=== PATIENT | female | born 1965 | race Caucasian/White ===

== ENCOUNTER 2017-01-03 02:00 | Emergency (ER) | payer MEDICARE, OTHER ==
[2017-01-03] MEDS ORDERED: diphenhydrAMINE HCl 50 MG/ML 1 ML VIAL ONE (03:01)
[2017-01-03] MEDS ORDERED: Aspirin 325 MG TAB ONE (03:01)
[2017-01-03] MEDS ORDERED: Lorazepam 2 MG/ML VIAL ONE (03:01)
[2017-01-03 03:15] LABS: INR-International Normal Ratio 1.1; PTT 32.3 SEC (22.9-36.1)
[2017-01-03 03:34] LABS: #Basophils 0.1 thou/uL (0.0-0.2); #Lymphocytes 1.1 thou/uL (1.20-3.40); #Monocytes 0.8 thou/uL (0.11-0.59); #Neutrophils 10.5 thou/uL (1.40-6.50); %Basophils 0.5 % (0.0-1.0); %Eosinophils 0.2 % (0.0-10.0); %Lymphocytes 8.8 % (21.0-51.0); %Monocytes 6.1 % (0.0-10.0); %Neutrophils 84.4 % (42.0-75.0); Hemoglobin 13.6 g/dL (12.0-16.0); Mean Corpuscular HGB CONC 34.7 g/dL (32.0-36.0); Mean Corpuscular Hemoglobin 33.7 pg (27.0-31.0); Mean Corpuscular Volume 97.3 fl (81.0-99.0); Mean Platelet Volume 6.8 fL (7.4-10.4); Platelet Count 322 thou/uL (130-400); Red Blood Cell (RBC) Count 4.05 mill/uL (4.20-5.40); White Blood Cell (WBC) Count 12.4 thou/uL (4.8-10.8)
[2017-01-03 03:49] LABS: ALT (SGPT) 18 U/L (8-55); AST (SGOT) 24 U/L (5-34); Albumin 3.8 g/dL (3.5-5.0); Alkaline Phosphatase 81 U/L (40-150); Anion Gap 15 mmol/L (10-20); BUN (Urea Nitrogen) 13 mg/dL (9.8-20.1); Bilirubin, Total 0.5 mg/dL (0.2-1.2); CK (CPK) 73 U/L (29-168); Calc. Creatinine Clearance 0 mL/min (70-130); Calcium 8.9 mg/dL (7.8-10.44); Carbon Dioxide 29 mmol/L (22-29); Chloride 98 mmol/L (98-107); Estimated GFR-MDRD 67; Globulin 3.9 g/dL (2.4-3.5); Glucose 203 mg/dL (70-105); Protein, Total 7.7 g/dL (6.0-8.3); Sodium 138 mmol/L (136-145)
[2017-01-03 03:55] LABS: CKMB 0.2 ng/mL (0-6.6); Troponin I Less than 0.010 ng/mL (< 0.028)
--- NOTE | 2017-01-03 08:14 | RAD ---
PORTABLE UPRIGHT FRONTAL CHEST RADIOGRAPH: Date: 01/03/17 COMPARISON: 02/03/16. HISTORY: Chest pain. FINDINGS: No pneumothorax, pleural fluid, focal consolidation, or alveolar edema. Heart and mediastinal contou r within normal limits. IMPRESSION: No acute findings. POS: [facility]
== END 2017-01-03 05:22 | disposition home or self-care (01) ==
LOC: MADERS 02:00
DX: F43.0 Acute stress reaction (principal); I10 Essential (primary) hypertension; E03.9 Hypothyroidism, unspecified; G35 Multiple sclerosis; E11.65 Type 2 diabetes mellitus with hyperglycemia; N39.0 Urinary tract infection, site not specified; E66.9 Obesity, unspecified; Z79.899 Other long term (current) drug therapy
CPT/HCPCS: 36415; 71010; 80053; 82553; 83880; 84484; 85025; 85610; 85730; 93005; 94760; 96374; 96375; J1200; J2060

== ENCOUNTER 2017-01-04 13:46 | Emergency (ER) | payer MEDICARE, OTHER ==
[~2017-01-04 13:46] MED LIST: Sodium Chloride 0.9% 1,000 ML BAG ONE
[2017-01-04 14:57] LABS: #Basophils 0.1 thou/uL (0.0-0.2); #Eosinphils 0.1 thou/uL (0.0-0.7); #Lymphocytes 1.6 thou/uL (1.20-3.40); #Monocytes 0.7 thou/uL (0.11-0.59); #Neutrophils 9.6 thou/uL (1.40-6.50); %Basophils 0.8 % (0.0-1.0); %Lymphocytes 13.2 % (21.0-51.0); %Monocytes 5.6 % (0.0-10.0); %Neutrophils 79.4 % (42.0-75.0); Hemoglobin 14.3 g/dL (12.0-16.0); Mean Corpuscular HGB CONC 33.2 g/dL (32.0-36.0); Mean Corpuscular Hemoglobin 32.8 pg (27.0-31.0); Mean Corpuscular Volume 99.1 fl (81.0-99.0); Mean Platelet Volume 6.6 fL (7.4-10.4); Platelet Count 373 thou/uL (130-400); Red Blood Cell (RBC) Count 4.36 mill/uL (4.20-5.40); White Blood Cell (WBC) Count 12.1 thou/uL (4.8-10.8)
--- NOTE | 2017-01-04 14:59 | RAD ---
CHEST ONE VIEW: History: Fever. Comparison: 01-03-17 FINDINGS: Lungs are clear. No pneumothorax or effusion. Cardiac silhouette and mediastinal contours are within normal limits. IMPRESSION: No acute cardiopulmonary process. No significant change. POS: [facility]
[2017-01-04] MEDS ORDERED: Fentanyl 100 MCG/2 ML VIAL ONE (15:10)
[2017-01-04 15:12] LABS: ALT (SGPT) 21 U/L (8-55); AST (SGOT) 33 U/L (5-34); Alkaline Phosphatase 84 U/L (40-150); Anion Gap 18 mmol/L (10-20); BUN (Urea Nitrogen) 12 mg/dL (9.8-20.1); Bilirubin, Total 0.5 mg/dL (0.2-1.2); Calc. Creatinine Clearance 0 mL/min (70-130); Calcium 9.4 mg/dL (7.8-10.44); Carbon Dioxide 28 mmol/L (22-29); Chloride 98 mmol/L (98-107); Estimated GFR-MDRD 67; Globulin 4.2 g/dL (2.4-3.5); Glucose 181 mg/dL (70-105); Potassium 4.1 mmol/L (3.5-5.1); Protein, Total 8.2 g/dL (6.0-8.3); Sodium 140 mmol/L (136-145)
[2017-01-04 15:40] LABS: Clarity Cloudy (Clear); Specific Gravity, Urine 1.015 (1.005-1.030)
[2017-01-04 15:41] LABS: Bilirubin Negative (Negative); Blood, Urine Large (Negative); Glucose, Urine (Dipstick) Negative (Negative); Leukocyte Large (Negative); Nitrite Positive (Negative); Protein, Urine (Dipstick) > or equal to 300 mg/dL (Neg-Trace); pH, Urine 5.5 (5.0-9.0)
[2017-01-04 15:42] LABS: Bacteria/HPF 1+ HPF (None Seen); Other Microscopic Description C&S SET UP; RBC/HPF GREATER THAN 50-TNTC HPF (0-3); Squamous Epithelial 0-3 HPF (0-3)
== END 2017-01-04 16:32 | disposition short-term general hospital (02) ==
LOC: MADERS 13:46
DX: A41.9 Sepsis, unspecified organism (principal); E03.9 Hypothyroidism, unspecified; I12.9 Hypertensive chronic kidney disease with stage 1 through stage 4 chronic kidney disease, or unspecified chronic kidney disease; N18.9 Chronic kidney disease, unspecified; F41.9 Anxiety disorder, unspecified; E78.5 Hyperlipidemia, unspecified; E66.9 Obesity, unspecified; E11.9 Type 2 diabetes mellitus without complications; G35 Multiple sclerosis; Z79.899 Other long term (current) drug therapy; Z79.4 Long term (current) use of insulin
CPT/HCPCS: 36415; 51702; 71010; 80053; 81003; 81015; 83605; 85025; 87040; 87077; 87086; 87186; 96365; 96375; A4353; J1170; J3010; J3370; J7050

== ENCOUNTER 2017-01-28 14:42 | Outpatient (CLI) | payer MEDICARE, MEDICAID ==
[2017-01-28 15:05] LABS: Bilirubin Negative (Negative); Blood, Urine Trace (Negative); Clarity Slightly Cloudy (Clear); Glucose, Urine (Dipstick) Negative (Negative); Leukocyte Moderate (Negative); Nitrite Negative (Negative); Protein, Urine (Dipstick) Negative (Neg-Trace); Urobilinogen 0.2 mg/dL (0.2-1.0)
[2017-01-28 15:13] LABS: Bacteria/HPF 4+ HPF (None Seen)
== END 2017-01-28 14:43 | disposition home or self-care (01) ==
LOC: MADLAB 14:42
PROVIDERS: ATTEND Internal Medicine Nephrology
DX: N18.1 Chronic kidney disease, stage 1 (principal); R30.9 Painful micturition, unspecified
CPT/HCPCS: 36415; 81001; 87077; 87086; 87186

== ENCOUNTER 2017-04-14 17:12 | Emergency (ER) | payer MEDICARE, MEDICAID ==
[2017-04-14] MEDS ORDERED: Promethazine HCl 25 MG/ML VIAL ONE (18:38)
[2017-04-14] MEDS ORDERED: diphenhydrAMINE 50 MG/ML VIAL ONE (18:38)
[2017-04-14] MEDS ORDERED: Ketorolac Tromethamine 30 MG/ML VIAL ONE (18:38)
== END 2017-04-14 21:00 | disposition home or self-care (01) ==
LOC: MADERS 17:12
DX: T83.018A Breakdown (mechanical) of other urinary catheter, initial encounter (principal); G43.909 Migraine, unspecified, not intractable, without status migrainosus; E03.9 Hypothyroidism, unspecified; E66.9 Obesity, unspecified; E78.5 Hyperlipidemia, unspecified; I12.9 Hypertensive chronic kidney disease with stage 1 through stage 4 chronic kidney disease, or unspecified chronic kidney disease; E11.22 Type 2 diabetes mellitus with diabetic chronic kidney disease; N18.9 Chronic kidney disease, unspecified; F41.9 Anxiety disorder, unspecified; Z79.4 Long term (current) use of insulin; Z79.899 Other long term (current) drug therapy
CPT/HCPCS: 87086; 96361; 96372; 96374; 96375; A4353; J1200; J1885; J2550; J7050

== ENCOUNTER 2017-08-25 14:39 | Inpatient (IN) | payer MEDICARE ==
[2017-08-25] MEDS ORDERED: Magnesium Citrate 300 ML BOT PO PRN (17:05)
[2017-08-25] MEDS ORDERED: Calcium Carbonate 500 MG ChewTAB PO PRN (17:05)
[2017-08-25] MEDS ORDERED: cloNIDine 0.1 MG TAB PO PRN (17:05)
[2017-08-25] MEDS ORDERED: Dicyclomine 10 MG CAP PO PRN (17:05)
[2017-08-25] MEDS ORDERED: Acetaminophen ER (8hr) 650 MG TAB PO PRN (17:05)
[2017-08-25] MEDS ORDERED: HumaLOG 300 UNITS/3 ML VIAL SC PRN (17:05)
[2017-08-25] MEDS ORDERED: Dextrose 5% in Water 1,000 ML IV PRN (17:28)
[2017-08-25] MEDS ORDERED: Dextrose 50% Abboject 50 ML SYRINGE SLOW IVP PRN (17:28)
[2017-08-25] MEDS ORDERED: fentaNYL 50 mcg/hour Patch TD SCH (18:00)
[2017-08-25] MEDS: Nystatin 500,000 UNITS/5 ML UDCUP SSW SCH (20:12)
[2017-08-25] MEDS: Melatonin 3 MG TAB PO SCH (20:12)
[2017-08-25] MEDS: Furosemide 40 MG TAB PO SCH (20:14)
[2017-08-25] MEDS: Docusate 100 MG CAP PO SCH (20:14)
[2017-08-25] MEDS: Montelukast Sodium 10 mg Tablet PO SCH (20:15)
[2017-08-25] MEDS: Pravastatin Sodium 20 MG TAB PO SCH (20:15)
[2017-08-25] MEDS: Cyclobenzaprine 10 MG TAB PO SCH (20:15)
[2017-08-25] MEDS: Cefepime 2 GM VIAL IVPB SCH (20:16)
[2017-08-25] MEDS: azaTHIOprine 50 MG TAB PO SCH (20:18)
[2017-08-25] MEDS: Nystatin Powder 15 GM BOT TOP SCH (20:21)
[2017-08-25] MEDS ORDERED: Sodium Chloride 0.9% 20 ML ONE (20:49)
[2017-08-25] MEDS ORDERED: Insulin Glargine 100 UNIT/ML 3 ML PEN SQ SCH (21:00)
[2017-08-25] MEDS ORDERED: ALPRAZOLAM 0.5 MG PO SCH (21:00)
[2017-08-25] MEDS: Acetaminophen/Codeine 30-300mg Tablet PO PRN (21:03)
[2017-08-25] MEDS: ALPRAZolam 0.5 MG TAB PO SCH (21:05)
[2017-08-25] MEDS: HYDROmorphone 2 MG TAB PO PRN (21:05)
[2017-08-25] MEDS: Levemir Flexpen 100 UNITS/ML PEN SC SCH (22:14)
[2017-08-25] MEDS ORDERED: Vancomycin HCl 750 MG in Sodium Chloride 0.9% 250 ML 250 ML IVPB SCH (23:00)
[2017-08-26] MEDS: Levothyroxine Sodium 112 MCG TAB PO SCH (05:42)
[2017-08-26] MEDS: Acetaminophen/Codeine 30-300mg Tablet PO PRN ×3 (05:49→23:50)
--- NOTE | 2017-08-26 08:01 | HP ---
DATE OF ADMISSION: 08/25/2017 ATTENDING: Dr. Agueda Gomez PHYSICIANS INVOLVED: 1. Infectious Disease, Dr. Glynn Velásquez. 2. Urologist, Dr. Poole 3. Orthopedics, Dr. Mu Vila 4. Neurologist, Dr. Mendez 5. Restorative Care Technician, Dr. Mendez REASON FOR ADMISSION: To complete IV antibiotic in [place] swing bed. HISTORY OF PRESENT ILLNESS/HOSPITAL COURSE: Ms. Yun is a 51-year-old female with history of multiple sclerosis, functional quadriplegia secondary to multiple sclerosis, diabetes type 2, chronic pain syndrome, fibromyalgia, neurogenic bladder requiring chronic indwelling Mcpherson catheter and morbid obesity. The patient is a long-term resident of [facility] in [place]. She has been bedbound since she was diagnosed with multiple sclerosis several years ago. She has intermittent recurrent history of Candidal dermatitis.She always has issues with her foleycath. The patient was initially noted to have a mild skin abscess in the right pubis a month ago in the senior care for which she was treated with oral antibiotic. The patient reports that she continued to have swelling in the pubic area since then. long term staff reports that patient had never told anyone on this and that she would not allow anyone to check on her genital part at all. When she was reevaluated a month after for routine exam, the right labial wound is almost healing in appearance, but the patient reports some tenderness in the right side of the pubis At that time there was some degree of swelling noted on her pubis. Again, she was treated with another course of oral antibiotics. Patient was also c/o rash in her pannus and inguinal area, At that time, the rash was almost gone when examined. There was no reported fever or any signs of bacteremia. She complains of pain on her back for the most part, but she has this history of chronic pain for which she is being treated by neurologist, Dr. Mendez, for pain management. She has been referred back to Dr Mendez when she started complaining of increased back pain but has been refusing to go. Two to 3 days after the retrial of oral antibiotic, patient reports o significant improvement of her overall symptoms, thus she was transferred to the ER for further evaluation. Her CT scan in the ER showed widening of the symphysis pubis and possible septic arthritis, thus she was subsequently admitted to [facility] in [place]. The patient was started on broad spectrum antibiotics with vancomycin and Zosyn. Infectious Disease and Orthopedics were consulted. She was seen by Dr. Fabricio Vila for orthopedic care and was recommended to continue IV antibiotic, but no surgical intervention. She was also seen by Dr. Velásquez, who recommended long-term antibiotic and aspiration of the affected area. Dr. Velásquez recommended a further urologist consultation to make sure that there was no complication associated with Mcpherson catheter. He also recommended to complete 4-6 weeks of broad spectrum treatment. She is currently on vancomycin and cefepime that she will finish in [facility]. The patient's latest vancomycin level was on 08/24/2017 which was reported therapeutic at 16 range. The patient was also seen by Dr. Poole for further urology evaluation and was taken to cystoscopy on 08/20/2017 for diagnostic cystoscopy and vaginoscopy. The patient continued to improve clinically over the course. Her repeat imaging with MRI was performed which showed inflammation of the site. At that point they consulted Interventional Radiology for a CT guided biopsy. This was done on 08/24/2017, pending results. Per report, there was no significant fluid aspirated. Overall, the patient remains afebrile. She remains at her baseline mental status, she was deemed stable for discharge today to [facility] to complete her antibiotics. She will be getting a weekly routine lab including CBC, CMP, sed rate, CRP, and likewise vancomycin trough. Upon admission, the patient reports that she is having pain, requesting for her pain medication. She is currently on her chronic pain medications including Dilaudid, Fentanyl, Cymbalta. The patient reports that she has also been taking Tylenol #3 over the hospital for breakthrough pain. The patient also reports that she remains generally weak. She is agreeable to undergo therapy while in rehab. We will order PT and OT as well. PAST MEDICAL HISTORY: 1. Hypertension. 2. Diabetes type 2, insulin-dependent.. 3. Multiple sclerosis. 4. Neurogenic bladder requiring insertion of indwelling catheter 5. Chronic kidney disease. 6. Chronic constipation likely opioid induced. 7. Functional paraplegia secondary to multiple sclerosis. 8. Anxiety. 9. Depression. 10. Chronic pain syndrome. 11. Hypothyroidism. 12. Fibromyalgia. 13. Chronic migraines. 14. Hyperlipidemia. 15. Obesity. 16. Unsteady gait. 17. Recurrent UTI. 18. Recurrent candidal dermatitis. 19. Chronic gastroesophageal reflux disease. 20. Chronic insomnia. 21. Horseshoe kidney. 22. History of fall. 23. Iron deficiency anemia. 24. Lymphedema. CURRENT MEDICATIONS: Vancomycin 1.5 grams q.24h., cefepime 2 grams IV q.12 hours, azathioprine 50 mg p.o. b.i.d., Xanax 0.5 mg at bedtime, Activase as needed, Tylenol Arthritis p.r.n., Tums p.r.n., clonidine 0.1 mg p.o. q.6h. p.r.n., Flexeril 10 mg p.o. t.i.d. p.r.n. for muscle spasm, Bentyl 10 mg p.o. q.i.d. p.r.n. for bladder spasm, Colace q.i.d., fentanyl patch 50 mcg transdermal, change every 3 days, MiraLax 17 grams daily, fluconazole 100 mg p.o. daily, Lasix 40 mg p.o. b.i.d., glipizide 5 mg p.o. b.i.d., Humalog for sliding scale, Dilaudid 4 mg p.o. b.i.d. p.r.n. severe pain, Lantus 85 mg subcu b.i.d., Floranex 1 tab daily, levothyroxine 112 mcg daily, Losartan 25 mg p.o. daily, melatonin 10 mg p.o. at bedtime, Ditropan-XL 10 mg p.o. daily, Protonix 40 mg p.o. daily. PAST SURGICAL HISTORY: Thyroidectomy, tonsillectomy, adenoidectomy, hysterectomy, left wrist surgery. Colonoscopy by Dr. Wasserman at [facility] incomplete due to suboptimal prep with small internal hemorrhoids seen on 02/05/2016. Repeat colonoscopy by Dr. Nascimento at [facility] 02/06/2016 showed diverticulosis, small internal hemorrhoids, otherwise unremarkable. Echocardiogram on 01/2016, EF of 60-65% done at [facility]. ALLERGIES: SULFA, AMITRIPTYLINE, CLINDAMYCIN, MORPHINE, OMNICEF, SUMATRIPTAN, TETRACYCLINE, CHLORPHENIRAMINE, TRIPTON. REVIEW OF SYSTEMS: GENERAL: Reports fatigue, general weakness. No fever, no chills, no loss of appetite. HEENT: No acute visual changes or hearing changes. HEENT: No acute visual or hearing changes. No cold symptoms. RESPIRATORY: No chronic cough, sputum production, pain with breathing, dyspnea , wheezing. CARDIAC: No chest pain, palpitations, dyspnea on exertion, paroxysmal nocturnal dyspnea, orthopnea. GASTROINTESTINAL: Reports intermittent nausea without vomiting. Reports indigestion, heartburn, reports chronic constipation, denies diarrhea, rectal bleeding, hematemesis, hematochezia, black or tarry stools GENITOURINARY: shelter Mcpherson catheter secondary to urinary retention. Reports intermittent pubic pain. No vaginal discharge, no vaginal bleeding, no itching. MUSCULOSKELETAL: Reports chronic pain, stiffness. No joint effusion. No redness. Reports generalized myalgia. PSYCHIATRIC: Reports anxiety, depression and insomnia. No hallucinations. No suicidal thoughts, ideations or plan. SKIN: Reports intermittent skin rash and pruritus. No chronic nonhealing ulcers. No other source reported. . FAMILY HISTORY: Mother is alive. Noncontributory. SOCIAL HISTORY: The patient is a long time chronic smoker and is currently smoking. Denies alcohol intake. Denies illicit drug use. The patient is , no kids. PREVIOUS HOSPITALIZATIONS: 02/2014 at [facility] for multifocal pneumonia, healthcare related, complicated with reactive thrombocytosis, polyarticular inflammation and probable vasculitis. 03/22/2013 to 05/24/2013 at [facility] secondary to intractable nausea, vomiting, unspecified, improved after 24 hours of observation. 02/03/2016 02/09/2016 at [facility] for worsening edema and dyspnea, GI bleeding due to internal hemorrhoids. PREVIOUS PROCEDURES: 1. CT guided biopsy of the pubic symphysis 08/24/2017, pathology pending. 2. PICC line placement 08/18/2017, 45 cm long. 3. Diagnostic cystoscopy and vaginoscopy on 08/16/2017. CURRENT LABORATORY: Vancomycin trough 16 on 08/24/2017. CBC on 08/21/2017, WBC of 10.3, hemoglobin 11.7, hematocrit 35.2, platelets 333. Basic metabolic panel on 08/21/2017; sodium 137, potassium 4.4, BUN 16, creatinine 0.86, estimated GFR 70, glucose 161, calcium 9.2. PHYSICAL EXAMINATION: VITAL SIGNS: Blood pressure 144/65, temperature 98.2, pulse 86, respirations 24 , O2 saturation 97% on room air. GENERAL: The patient is awake, alert, oriented x3, not in distress, comfortable on exam. HEENT: Normocephalic, atraumatic. PERRL Intact EOM. Anicteric sclerae. Oral mucosa is pink and moist, no significant gross lesions noted. NECK: Supple. No LAD, no JVD, no bruit. CHEST: Normal excursion, nonlabored breathing. LUNGS: Clear to auscultation bilaterally. HEART: RRR. Normal S1 and S2. No murmurs. ABDOMEN: Obese, soft, normoactive bowel sounds, nondistended, nontender, no rebound, no guarding, negative CVA tenderness bilaterally. EXTREMITIES: No edema, no cyanosis. Good perfusion. No clubbing. GENITOURINARY: Mcpherson catheter in place draining adequately with clear teresa urine. Erythematous labia minora symmetrical. Mild swelling of the symphysis pubis. Nontender to touch. No significant erythema to skin. No vaginal discharge. SKIN: Intact. Pannus is covered with a white clean, likely Nystatin, but no significant erythema or lesions noted. PSYCHIATRIC: Appears calm with appropriate demeanor and affect, very interactive. NEUROLOGIC: Positive functional paraplegia. Gait unsteady. Reflexes intact. ASSESSMENT: 1. Septic arthritis of the pubic symphysis, requiring long-term antibiotic use current. 2. Deconditioning. 3. General weakness. 4. Nausea and vomiting, resolved. 5. Neurogenic bladder and chronic indwelling Mcpherson catheter. 6. Multiple sclerosis. 7. Chronic pain syndrome. 8. Hypertension. 9. Diabetes type 2, insulin-dependent. 10. Anxiety. 11. Chronic pain syndrome. 12. Hypothyroidism. 13. Fibromyalgia. 14. Chronic migraines. 15. Hyperlipidemia. 16. Obesity. 17. Depression and anxiety. 18. Abnormality of gait. 19. History of fall. The patient is admitted to [facility] to complete IV antibiotic for 6 weeks per Infectious Disease specialist's recommendation. We will obtain routine weekly CBC, CMP, CRP, EFR and vancomycin trough. Continue all current medications as per list. We will add Tylenol #3 q.8h. p.r.n. for additional pain control. Routine PICC line care/flush with heparin b.i.d. p.r.n. PT, OT evaluate and treat. Accu-Chek q.a.c. and at bedtime, sliding scale coverage for aggressive algorithm. I had a lengthy discussion with patient today regarding her current clinical status, diagnosis, treatment and length of stay. She is very cooperative and voices full understanding of her current situation and the plan of care. CODE STATUS: The patient reports FULL CODE. ESTIMATED LENGTH OF STAY: 6 weeks. FOLLOWUPS: Follow up with Dr. Velásquez in 2 weeks. Follow up with Dr. Poole in 3-4 weeks. DISPOSITION: [facility] once antibiotic is completed. MTDD
[2017-08-26] MEDS: fentaNYL 50 mcg/hour Patch TD SCH (08:28)
[2017-08-26] MEDS: azaTHIOprine 50 MG TAB PO SCH ×2 (08:30→21:06)
[2017-08-26] MEDS: Losartan 25 MG TAB PO SCH (08:30)
[2017-08-26] MEDS: Oxybutynin ER 5 MG TAB PO SCH (08:30)
[2017-08-26] MEDS: glipiZIDE 5 MG TAB PO SCH ×2 (08:31→17:07)
[2017-08-26] MEDS: Saccharomyces boulardii 250 MG CAP PO SCH (08:31)
[2017-08-26] MEDS: Cyclobenzaprine 10 MG TAB PO SCH ×3 (08:31→21:06)
[2017-08-26] MEDS: Potassium Chloride 10 MEQ TAB PO SCH (08:31)
[2017-08-26] MEDS: Furosemide 40 MG TAB PO SCH ×2 (08:32→21:06)
[2017-08-26] MEDS: Docusate 100 MG CAP PO SCH ×4 (08:32→21:05)
[2017-08-26] MEDS: Nystatin 500,000 UNITS/5 ML UDCUP SSW SCH ×4 (08:32→21:23)
[2017-08-26] MEDS: Cefepime 2 GM VIAL IVPB SCH ×2 (08:32→21:09)
[2017-08-26] MEDS: Polyethylene Glycol 3350 17 GM Packet PO SCH (08:32)
[2017-08-26] MEDS: Enoxaparin Sodium 40 MG/0.4 ML SYRINGE SC SCH (08:32)
[2017-08-26] MEDS: Fluticasone Propionate Nasal Spray 16 gm Bottle NASAL SCH (08:33)
[2017-08-26] MEDS: Levemir Flexpen 100 UNITS/ML PEN SC SCH ×2 (08:33→21:41)
[2017-08-26] MEDS: Nystatin Powder 15 GM BOT TOP SCH ×2 (08:34→21:46)
[2017-08-26] MEDS: DULoxetine 30 MG CAP PO SCH (08:42)
[2017-08-26] MEDS: HYDROmorphone 2 MG TAB PO PRN ×2 (09:04→21:24)
[2017-08-26] MEDS: HumaLOG 300 UNITS/3 ML VIAL SC PRN ×2 (12:14→17:07)
[2017-08-26] MEDS: Melatonin 3 MG TAB PO SCH (21:04)
[2017-08-26] MEDS: Pravastatin Sodium 20 MG TAB PO SCH (21:05)
[2017-08-26] MEDS: Montelukast Sodium 10 mg Tablet PO SCH (21:05)
[2017-08-26] MEDS: ALPRAZolam 0.5 MG TAB PO SCH (21:07)
[2017-08-26 22:39] LABS: Vancomycin, Trough 16.8 ug/mL
[2017-08-26] MEDS: Vancomycin HCl 1 GM in Sodium Chloride 0.9% 250 ML 250 ML IVPB SCH (23:43)
[2017-08-26] MEDS: Vancomycin HCl 500 MG in Sodium Chloride 0.9% 100 ML IVPB SCH (23:44)
[2017-08-27] MEDS: Levothyroxine Sodium 112 MCG TAB PO SCH (06:19)
[2017-08-27] MEDS: Enoxaparin Sodium 40 MG/0.4 ML SYRINGE SC SCH (08:07)
[2017-08-27] MEDS: Cyclobenzaprine 10 MG TAB PO SCH ×3 (08:07→20:41)
[2017-08-27] MEDS: Acetaminophen/Codeine 30-300mg Tablet PO PRN ×2 (08:08→15:17)
[2017-08-27] MEDS: Oxybutynin ER 5 MG TAB PO SCH (08:08)
[2017-08-27] MEDS: Potassium Chloride 10 MEQ TAB PO SCH (08:08)
[2017-08-27] MEDS: Furosemide 40 MG TAB PO SCH ×2 (08:08→20:41)
[2017-08-27] MEDS: Saccharomyces boulardii 250 MG CAP PO SCH (08:08)
[2017-08-27] MEDS: glipiZIDE 5 MG TAB PO SCH ×2 (08:08→17:37)
[2017-08-27] MEDS: Docusate 100 MG CAP PO SCH ×4 (08:09→20:40)
[2017-08-27] MEDS: DULoxetine 30 MG CAP PO SCH (08:10)
[2017-08-27] MEDS: Levemir Flexpen 100 UNITS/ML PEN SC SCH ×2 (08:10→21:01)
[2017-08-27] MEDS: azaTHIOprine 50 MG TAB PO SCH ×2 (08:10→20:42)
[2017-08-27] MEDS: Nystatin 500,000 UNITS/5 ML UDCUP SSW SCH ×4 (08:10→20:40)
[2017-08-27] MEDS: Losartan 25 MG TAB PO SCH (08:10)
[2017-08-27] MEDS: Fluticasone Propionate Nasal Spray 16 gm Bottle NASAL SCH (08:11)
[2017-08-27] MEDS: Nystatin Powder 15 GM BOT TOP SCH ×2 (08:11→20:45)
[2017-08-27] MEDS: Polyethylene Glycol 3350 17 GM Packet PO SCH (08:11)
[2017-08-27] MEDS: Cefepime 2 GM VIAL IVPB SCH ×2 (08:18→20:42)
[2017-08-27] MEDS: HYDROmorphone 2 MG TAB PO PRN ×2 (12:36→21:09)
[2017-08-27] MEDS: HumaLOG 300 UNITS/3 ML VIAL SC PRN ×2 (12:39→17:38)
[2017-08-27] MEDS: ALPRAZolam 0.5 MG TAB PO SCH (20:40)
[2017-08-27] MEDS: Pravastatin Sodium 20 MG TAB PO SCH (20:41)
[2017-08-27] MEDS: Montelukast Sodium 10 mg Tablet PO SCH (20:41)
[2017-08-27] MEDS: Melatonin 3 MG TAB PO SCH (20:41)
[2017-08-27] MEDS ORDERED: Fluconazole 100 MG TAB PO SCH (21:15)
[2017-08-27] MEDS: Vancomycin HCl 1 GM in Sodium Chloride 0.9% 250 ML 250 ML IVPB SCH (23:34)
[2017-08-27] MEDS: Vancomycin HCl 500 MG in Sodium Chloride 0.9% 100 ML IVPB SCH (23:35)
[2017-08-28] MEDS: Levothyroxine Sodium 112 MCG TAB PO SCH (05:33)
[2017-08-28 06:40] LABS: #Basophils 0.1 thou/uL (0.0-0.2); #Eosinphils 0.4 thou/uL (0.0-0.7); #Lymphocytes 1.5 thou/uL (1.20-3.40); #Monocytes 0.8 thou/uL (0.11-0.59); #Neutrophils 5.9 thou/uL (1.40-6.50); %Basophils 1.4 % (0.0-1.0); %Eosinophils 4.9 % (0.0-10.0); %Lymphocytes 17.4 % (21.0-51.0); %Monocytes 8.6 % (0.0-10.0); %Neutrophils 67.8 % (42.0-75.0); Hemoglobin 10.6 g/dL (12.0-16.0); Mean Corpuscular HGB CONC 32.5 g/dL (32.0-36.0); Mean Corpuscular Hemoglobin 30.8 pg (27.0-31.0); Mean Corpuscular Volume 94.8 fl (81.0-99.0); Mean Platelet Volume 5.9 fL (7.4-10.4); Platelet Count 279 thou/uL (130-400); Red Blood Cell (RBC) Count 3.44 mill/uL (4.20-5.40); White Blood Cell (WBC) Count 8.8 thou/uL (4.8-10.8)
[2017-08-28 06:49] LABS: Anion Gap 14 mmol/L (10-20); BUN (Urea Nitrogen) 25 mg/dL (9.8-20.1); Calc. Creatinine Clearance 113 mL/min (70-130); Calcium 8.9 mg/dL (7.8-10.44); Carbon Dioxide 27 mmol/L (22-29); Chloride 103 mmol/L (98-107); Estimated GFR-MDRD 57; Glucose 178 mg/dL (70-105); Potassium 4.5 mmol/L (3.5-5.1); Sodium 139 mmol/L (136-145)
[2017-08-28] MEDS: Nystatin 500,000 UNITS/5 ML UDCUP SSW SCH ×4 (11:00→20:45)
[2017-08-28] MEDS: Enoxaparin Sodium 40 MG/0.4 ML SYRINGE SC SCH (11:00)
[2017-08-28] MEDS: HumaLOG 300 UNITS/3 ML VIAL SC PRN ×3 (11:01→20:48)
[2017-08-28] MEDS: HYDROmorphone 2 MG TAB PO PRN ×2 (11:01→23:26)
[2017-08-28] MEDS: Potassium Chloride 10 MEQ TAB PO SCH (11:02)
[2017-08-28] MEDS: Furosemide 40 MG TAB PO SCH ×2 (11:03→20:44)
[2017-08-28] MEDS: azaTHIOprine 50 MG TAB PO SCH ×2 (11:03→20:43)
[2017-08-28] MEDS: Fluconazole 100 MG TAB PO SCH (11:03)
[2017-08-28] MEDS: Cyclobenzaprine 10 MG TAB PO SCH ×3 (11:03→20:43)
[2017-08-28] MEDS: Losartan 25 MG TAB PO SCH (11:03)
[2017-08-28] MEDS: Saccharomyces boulardii 250 MG CAP PO SCH (11:03)
[2017-08-28] MEDS: Docusate 100 MG CAP PO SCH ×4 (11:03→20:43)
[2017-08-28] MEDS: Oxybutynin ER 5 MG TAB PO SCH (11:04)
[2017-08-28] MEDS: DULoxetine 30 MG CAP PO SCH (11:04)
[2017-08-28] MEDS: Polyethylene Glycol 3350 17 GM Packet PO SCH (11:04)
[2017-08-28] MEDS: Levemir Flexpen 100 UNITS/ML PEN SC SCH ×2 (11:04→20:47)
[2017-08-28] MEDS: glipiZIDE 5 MG TAB PO SCH ×2 (11:04→17:51)
[2017-08-28] MEDS: Nystatin Powder 15 GM BOT TOP SCH ×2 (11:05→20:45)
[2017-08-28] MEDS: Fluticasone Propionate Nasal Spray 16 gm Bottle NASAL SCH (11:05)
[2017-08-28] MEDS: Cefepime 2 GM VIAL IVPB SCH ×2 (11:06→20:44)
[2017-08-28] MEDS ORDERED: Zinc Oxide 20% Oint 30 GM TUBE TOP PRN (15:30)
[2017-08-28] MEDS ORDERED: Acetaminophen/Codeine 30-300mg Tablet PO PRN (15:31)
[2017-08-28 16:37] LABS: CRP (Inflammatory) 2.71 mg/dL (= or < 0.5)
[2017-08-28] MEDS: Acetaminophen/Codeine 30-300mg Tablet PO PRN (17:52)
[2017-08-28] MEDS: Pravastatin Sodium 20 MG TAB PO SCH (20:43)
[2017-08-28] MEDS: Melatonin 3 MG TAB PO SCH (20:43)
[2017-08-28] MEDS: Montelukast Sodium 10 mg Tablet PO SCH (20:44)
[2017-08-28] MEDS: ALPRAZolam 0.5 MG TAB PO SCH (20:44)
[2017-08-28] MEDS: Nystatin/Triamcinolone Cream 15 GM TUBE TOP SCH (20:46)
[2017-08-28] MEDS: Vancomycin HCl 1 GM in Sodium Chloride 0.9% 250 ML 250 ML IVPB SCH (23:15)
[2017-08-28] MEDS: Vancomycin HCl 500 MG in Sodium Chloride 0.9% 100 ML IVPB SCH (23:15)
[2017-08-29] MEDS: Acetaminophen/Codeine 30-300mg Tablet PO PRN ×2 (05:57→18:03)
[2017-08-29] MEDS: Levothyroxine Sodium 112 MCG TAB PO SCH (05:57)
[2017-08-29] MEDS: Levemir Flexpen 100 UNITS/ML PEN SC SCH ×2 (08:09→21:41)
[2017-08-29] MEDS: fentaNYL 50 mcg/hour Patch TD SCH (08:10)
[2017-08-29] MEDS: azaTHIOprine 50 MG TAB PO SCH ×2 (08:11→22:01)
[2017-08-29] MEDS: Fluconazole 100 MG TAB PO SCH (08:11)
[2017-08-29] MEDS: Enoxaparin Sodium 40 MG/0.4 ML SYRINGE SC SCH (08:11)
[2017-08-29] MEDS: Nystatin 500,000 UNITS/5 ML UDCUP SSW SCH ×4 (08:11→21:50)
[2017-08-29] MEDS: Cyclobenzaprine 10 MG TAB PO SCH ×3 (08:12→21:20)
[2017-08-29] MEDS: Docusate 100 MG CAP PO SCH ×4 (08:12→21:24)
[2017-08-29] MEDS: DULoxetine 30 MG CAP PO SCH (08:12)
[2017-08-29] MEDS: Oxybutynin ER 5 MG TAB PO SCH (08:12)
[2017-08-29] MEDS: Furosemide 40 MG TAB PO SCH ×2 (08:12→21:24)
[2017-08-29] MEDS: Saccharomyces boulardii 250 MG CAP PO SCH (08:13)
[2017-08-29] MEDS: glipiZIDE 5 MG TAB PO SCH ×2 (08:13→17:21)
[2017-08-29] MEDS: Potassium Chloride 10 MEQ TAB PO SCH (08:13)
[2017-08-29] MEDS: Losartan 25 MG TAB PO SCH (08:13)
[2017-08-29] MEDS: Cefepime 2 GM VIAL IVPB SCH ×2 (08:13→21:25)
[2017-08-29] MEDS: Polyethylene Glycol 3350 17 GM Packet PO SCH ×2 (08:14)
[2017-08-29] MEDS: Nystatin Powder 15 GM BOT TOP SCH ×2 (08:15→22:00)
[2017-08-29] MEDS: Nystatin/Triamcinolone Cream 15 GM TUBE TOP SCH ×2 (08:15→22:00)
[2017-08-29] MEDS: Fluticasone Propionate Nasal Spray 16 gm Bottle NASAL SCH (08:16)
[2017-08-29] MEDS: HYDROmorphone 2 MG TAB PO PRN ×2 (11:59→23:07)
[2017-08-29] MEDS: HumaLOG 300 UNITS/3 ML VIAL SC PRN ×3 (12:00→21:27)
[2017-08-29] MEDS: Proctozone-HC 2.5% Cream 30 GM TUBE TOP SCH (12:03)
[2017-08-29] MEDS: ALPRAZolam 0.5 MG TAB PO SCH (21:20)
[2017-08-29] MEDS: Melatonin 3 MG TAB PO SCH (21:21)
[2017-08-29] MEDS: Montelukast Sodium 10 mg Tablet PO SCH (21:23)
[2017-08-29] MEDS: Pravastatin Sodium 20 MG TAB PO SCH (21:24)
[2017-08-29] MEDS: Vancomycin HCl 1 GM in Sodium Chloride 0.9% 250 ML 250 ML IVPB SCH (22:47)
[2017-08-29] MEDS: Vancomycin HCl 500 MG in Sodium Chloride 0.9% 100 ML IVPB SCH (22:49)
[2017-08-30] MEDS: Ibuprofen 800 MG TAB PO PRN ×2 (02:25→14:46)
[2017-08-30] MEDS: Acetaminophen/Codeine 30-300mg Tablet PO PRN ×2 (06:12→18:12)
[2017-08-30] MEDS: Levothyroxine Sodium 112 MCG TAB PO SCH (06:13)
[2017-08-30] MEDS: Docusate 100 MG CAP PO SCH ×4 (08:51→21:17)
[2017-08-30] MEDS: Furosemide 40 MG TAB PO SCH ×2 (08:51→21:17)
[2017-08-30] MEDS: Potassium Chloride 10 MEQ TAB PO SCH (08:52)
[2017-08-30] MEDS: glipiZIDE 5 MG TAB PO SCH ×2 (08:52→17:04)
[2017-08-30] MEDS: Saccharomyces boulardii 250 MG CAP PO SCH (08:52)
[2017-08-30] MEDS: Fluconazole 100 MG TAB PO SCH (08:52)
[2017-08-30] MEDS: Cyclobenzaprine 10 MG TAB PO SCH ×3 (08:52→21:17)
[2017-08-30] MEDS: DULoxetine 30 MG CAP PO SCH (08:53)
[2017-08-30] MEDS: Oxybutynin ER 5 MG TAB PO SCH (08:53)
[2017-08-30] MEDS: azaTHIOprine 50 MG TAB PO SCH ×2 (08:53→21:17)
[2017-08-30] MEDS: Enoxaparin Sodium 40 MG/0.4 ML SYRINGE SC SCH (08:54)
[2017-08-30] MEDS: Polyethylene Glycol 3350 17 GM Packet PO SCH ×2 (08:54)
[2017-08-30] MEDS: Fluticasone Propionate Nasal Spray 16 gm Bottle NASAL SCH (08:56)
[2017-08-30] MEDS: Proctozone-HC 2.5% Cream 30 GM TUBE TOP SCH (08:56)
[2017-08-30] MEDS: Cefepime 2 GM VIAL IVPB SCH ×2 (08:56→21:18)
[2017-08-30] MEDS: Nystatin 500,000 UNITS/5 ML UDCUP SSW SCH ×4 (08:57→21:18)
[2017-08-30] MEDS: Losartan 25 MG TAB PO SCH (08:57)
[2017-08-30] MEDS: Nystatin Powder 15 GM BOT TOP SCH ×2 (08:57→21:18)
[2017-08-30] MEDS: Nystatin/Triamcinolone Cream 15 GM TUBE TOP SCH ×2 (08:58→21:19)
[2017-08-30] MEDS: Levemir Flexpen 100 UNITS/ML PEN SC SCH ×2 (08:59→21:32)
[2017-08-30] MEDS: HumaLOG 300 UNITS/3 ML VIAL SC PRN ×3 (09:08→21:33)
[2017-08-30] MEDS: HYDROmorphone 2 MG TAB PO PRN ×2 (11:47→23:54)
[2017-08-30] MEDS: Ondansetron ODT 4 MG TAB PO PRN (18:15)
[2017-08-30] MEDS: ALPRAZolam 0.5 MG TAB PO SCH (21:14)
[2017-08-30] MEDS: Melatonin 3 MG TAB PO SCH (21:15)
[2017-08-30] MEDS: Montelukast Sodium 10 mg Tablet PO SCH (21:17)
[2017-08-30] MEDS: Pravastatin Sodium 20 MG TAB PO SCH (21:22)
[2017-08-30] MEDS: Vancomycin HCl 1 GM in Sodium Chloride 0.9% 250 ML 250 ML IVPB SCH (23:37)
[2017-08-30] MEDS: Vancomycin HCl 500 MG in Sodium Chloride 0.9% 100 ML IVPB SCH (23:37)
[2017-08-31] MEDS: Levothyroxine Sodium 112 MCG TAB PO SCH (05:54)
[2017-08-31] MEDS: HYDROmorphone 2 MG TAB PO PRN (06:10)
[2017-08-31] MEDS: Polyethylene Glycol 3350 17 GM Packet PO SCH ×2 (08:07→08:08)
[2017-08-31] MEDS: Cefepime 2 GM VIAL IVPB SCH ×2 (08:07→21:17)
[2017-08-31] MEDS: Nystatin 500,000 UNITS/5 ML UDCUP SSW SCH ×4 (08:07→21:20)
[2017-08-31] MEDS: Fluconazole 100 MG TAB PO SCH (08:08)
[2017-08-31] MEDS: Docusate 100 MG CAP PO SCH ×4 (08:08→21:17)
[2017-08-31] MEDS: Saccharomyces boulardii 250 MG CAP PO SCH (08:08)
[2017-08-31] MEDS: Potassium Chloride 10 MEQ TAB PO SCH (08:08)
[2017-08-31] MEDS: Cyclobenzaprine 10 MG TAB PO SCH ×3 (08:09→21:16)
[2017-08-31] MEDS: Oxybutynin ER 5 MG TAB PO SCH (08:09)
[2017-08-31] MEDS: Losartan 25 MG TAB PO SCH (08:09)
[2017-08-31] MEDS: azaTHIOprine 50 MG TAB PO SCH ×2 (08:09→21:16)
[2017-08-31] MEDS: DULoxetine 30 MG CAP PO SCH (08:09)
[2017-08-31] MEDS: Furosemide 40 MG TAB PO SCH ×2 (08:09→21:17)
[2017-08-31] MEDS: glipiZIDE 5 MG TAB PO SCH ×2 (08:09→16:54)
[2017-08-31] MEDS: Enoxaparin Sodium 40 MG/0.4 ML SYRINGE SC SCH (08:10)
[2017-08-31] MEDS: Fluticasone Propionate Nasal Spray 16 gm Bottle NASAL SCH (08:11)
[2017-08-31] MEDS: Nystatin Powder 15 GM BOT TOP SCH ×2 (08:16→21:20)
[2017-08-31] MEDS: Levemir Flexpen 100 UNITS/ML PEN SC SCH ×2 (08:16→21:18)
[2017-08-31] MEDS: Nystatin/Triamcinolone Cream 15 GM TUBE TOP SCH ×2 (08:17→21:20)
[2017-08-31] MEDS: Proctozone-HC 2.5% Cream 30 GM TUBE TOP SCH (08:18)
[2017-08-31] MEDS: Ibuprofen 800 MG TAB PO PRN ×2 (08:21→16:54)
[2017-08-31] MEDS: HumaLOG 300 UNITS/3 ML VIAL SC PRN (11:24)
[2017-08-31] MEDS: Acetaminophen/Codeine 30-300mg Tablet PO PRN (12:01)
[2017-08-31] MEDS: ALPRAZolam 0.5 MG TAB PO SCH (21:13)
[2017-08-31] MEDS: Melatonin 3 MG TAB PO SCH (21:13)
[2017-08-31] MEDS: HYDROmorphone 2 MG TAB PO SCH (21:14)
[2017-08-31] MEDS: Pravastatin Sodium 20 MG TAB PO SCH (21:16)
[2017-08-31] MEDS: Montelukast Sodium 10 mg Tablet PO SCH (21:16)
[2017-08-31] MEDS ORDERED: Sterile Water 10 ML ONE (22:51)
[2017-08-31] MEDS: Activase 2 MG VIAL CATH PRN (22:52)
[2017-09-01 01:56] LABS: Vancomycin, Trough 32.1 ug/mL
[2017-09-01] MEDS: Vancomycin HCl 1 GM in Sodium Chloride 0.9% 250 ML 250 ML IVPB SCH (02:04)
[2017-09-01] MEDS: Vancomycin HCl 500 MG in Sodium Chloride 0.9% 100 ML IVPB SCH (02:06)
[2017-09-01] MEDS: Acetaminophen/Codeine 30-300mg Tablet PO PRN ×2 (03:41→16:33)
[2017-09-01] MEDS: Levothyroxine Sodium 112 MCG TAB PO SCH (06:11)
[2017-09-01] MEDS: glipiZIDE 5 MG TAB PO SCH ×2 (07:41→15:56)
[2017-09-01] MEDS: HumaLOG 300 UNITS/3 ML VIAL SC PRN ×3 (07:42→16:31)
[2017-09-01] MEDS: fentaNYL 50 mcg/hour Patch TD SCH (09:13)
[2017-09-01] MEDS: HYDROmorphone 2 MG TAB PO SCH ×2 (09:14→20:26)
[2017-09-01] MEDS: Enoxaparin Sodium 40 MG/0.4 ML SYRINGE SC SCH (09:15)
[2017-09-01] MEDS: azaTHIOprine 50 MG TAB PO SCH ×2 (09:15→20:28)
[2017-09-01] MEDS: Furosemide 40 MG TAB PO SCH ×2 (09:15→20:27)
[2017-09-01] MEDS: Cyclobenzaprine 10 MG TAB PO SCH ×3 (09:15→20:28)
[2017-09-01] MEDS: Saccharomyces boulardii 250 MG CAP PO SCH (09:16)
[2017-09-01] MEDS: Potassium Chloride 10 MEQ TAB PO SCH (09:16)
[2017-09-01] MEDS: Fluconazole 100 MG TAB PO SCH (09:17)
[2017-09-01] MEDS: Oxybutynin ER 5 MG TAB PO SCH (09:17)
[2017-09-01] MEDS: Docusate 100 MG CAP PO SCH ×4 (09:17→20:29)
[2017-09-01] MEDS: Levemir Flexpen 100 UNITS/ML PEN SC SCH ×2 (09:18→20:30)
[2017-09-01] MEDS: DULoxetine 30 MG CAP PO SCH (09:18)
[2017-09-01] MEDS: Losartan 25 MG TAB PO SCH (09:18)
[2017-09-01] MEDS: Nystatin 500,000 UNITS/5 ML UDCUP SSW SCH ×4 (09:31→20:26)
[2017-09-01] MEDS: Cefepime 2 GM VIAL IVPB SCH ×2 (09:31→20:26)
[2017-09-01] MEDS: Proctozone-HC 2.5% Cream 30 GM TUBE TOP SCH (09:32)
[2017-09-01] MEDS: Fluticasone Propionate Nasal Spray 16 gm Bottle NASAL SCH (09:32)
[2017-09-01] MEDS: Nystatin Powder 15 GM BOT TOP SCH ×2 (09:32→20:31)
[2017-09-01] MEDS: Nystatin/Triamcinolone Cream 15 GM TUBE TOP SCH ×2 (09:33→20:31)
[2017-09-01] MEDS: Polyethylene Glycol 3350 17 GM Packet PO SCH ×2 (09:33)
[2017-09-01] MEDS: Montelukast Sodium 10 mg Tablet PO SCH (20:26)
[2017-09-01] MEDS: Melatonin 3 MG TAB PO SCH (20:27)
[2017-09-01] MEDS: Pravastatin Sodium 20 MG TAB PO SCH (20:28)
[2017-09-01] MEDS: ALPRAZolam 0.5 MG TAB PO SCH (20:28)
[2017-09-01 22:57] LABS: Vancomycin, Random 20.8 ug/mL (See Comment)
[2017-09-01] MEDS ORDERED: Vancomycin HCl 1 GM in Sodium Chloride 0.9% 250 ML 250 ML IVPB SCH (23:00)
[2017-09-02] MEDS: Acetaminophen/Codeine 30-300mg Tablet PO PRN ×2 (04:31→16:43)
[2017-09-02] MEDS: Ibuprofen 800 MG TAB PO PRN (04:36)
[2017-09-02] MEDS: Levothyroxine Sodium 112 MCG TAB PO SCH (05:04)
[2017-09-02] MEDS: glipiZIDE 5 MG TAB PO SCH ×2 (08:12→16:44)
[2017-09-02] MEDS: HumaLOG 300 UNITS/3 ML VIAL SC PRN ×4 (08:12→21:20)
[2017-09-02] MEDS: HYDROmorphone 2 MG TAB PO SCH ×2 (08:14→20:46)
[2017-09-02] MEDS: Potassium Chloride 10 MEQ TAB PO SCH (08:14)
[2017-09-02] MEDS: Saccharomyces boulardii 250 MG CAP PO SCH (08:16)
[2017-09-02] MEDS: Oxybutynin ER 5 MG TAB PO SCH (08:16)
[2017-09-02] MEDS: DULoxetine 30 MG CAP PO SCH (08:16)
[2017-09-02] MEDS: Docusate 100 MG CAP PO SCH ×5 (08:16→20:45)
[2017-09-02] MEDS: Losartan 25 MG TAB PO SCH (08:16)
[2017-09-02] MEDS: Furosemide 40 MG TAB PO SCH ×2 (08:16→20:50)
[2017-09-02] MEDS: Cefepime 2 GM VIAL IVPB SCH ×2 (08:17→21:22)
[2017-09-02] MEDS: Nystatin 500,000 UNITS/5 ML UDCUP SSW SCH ×4 (08:17→20:51)
[2017-09-02] MEDS: Cyclobenzaprine 10 MG TAB PO SCH ×3 (08:17→20:45)
[2017-09-02] MEDS: azaTHIOprine 50 MG TAB PO SCH ×2 (08:17→20:51)
[2017-09-02] MEDS: Fluconazole 100 MG TAB PO SCH (08:18)
[2017-09-02] MEDS: Enoxaparin Sodium 40 MG/0.4 ML SYRINGE SC SCH (08:18)
[2017-09-02] MEDS: Fluticasone Propionate Nasal Spray 16 gm Bottle NASAL SCH (08:19)
[2017-09-02] MEDS: Levemir Flexpen 100 UNITS/ML PEN SC SCH ×2 (08:20→21:18)
[2017-09-02] MEDS: Proctozone-HC 2.5% Cream 30 GM TUBE TOP SCH (08:20)
[2017-09-02] MEDS: Nystatin Powder 15 GM BOT TOP SCH ×2 (08:21→22:19)
[2017-09-02] MEDS: Polyethylene Glycol 3350 17 GM Packet PO SCH ×2 (08:21→08:22)
[2017-09-02] MEDS: Nystatin/Triamcinolone Cream 15 GM TUBE TOP SCH ×2 (08:21→21:12)
[2017-09-02] MEDS: Vancomycin HCl 1 GM in Sodium Chloride 0.9% 250 ML 250 ML IVPB SCH (08:22)
[2017-09-02] MEDS: Loratadine 10 MG TAB PO PRN (13:52)
[2017-09-02] MEDS: ALPRAZolam 0.5 MG TAB PO SCH (20:44)
[2017-09-02] MEDS: Montelukast Sodium 10 mg Tablet PO SCH (20:45)
[2017-09-02] MEDS: Melatonin 3 MG TAB PO SCH (20:50)
[2017-09-02] MEDS: Pravastatin Sodium 20 MG TAB PO SCH (20:51)
[2017-09-02] MEDS: Ondansetron ODT 4 MG TAB PO PRN (21:41)
[2017-09-03] MEDS: Levothyroxine Sodium 112 MCG TAB PO SCH (05:54)
[2017-09-03] MEDS: Acetaminophen/Codeine 30-300mg Tablet PO PRN ×2 (06:00→17:49)
[2017-09-03] MEDS: Docusate 100 MG CAP PO SCH ×4 (08:22→20:44)
[2017-09-03] MEDS: Potassium Chloride 10 MEQ TAB PO SCH (08:22)
[2017-09-03] MEDS: Oxybutynin ER 5 MG TAB PO SCH (08:22)
[2017-09-03] MEDS: azaTHIOprine 50 MG TAB PO SCH ×2 (08:22→20:43)
[2017-09-03] MEDS: Cyclobenzaprine 10 MG TAB PO SCH ×3 (08:23→20:43)
[2017-09-03] MEDS: Furosemide 40 MG TAB PO SCH ×2 (08:23→20:43)
[2017-09-03] MEDS: Saccharomyces boulardii 250 MG CAP PO SCH (08:23)
[2017-09-03] MEDS: glipiZIDE 5 MG TAB PO SCH ×2 (08:23→17:20)
[2017-09-03] MEDS: DULoxetine 30 MG CAP PO SCH (08:23)
[2017-09-03] MEDS: Fluconazole 100 MG TAB PO SCH (08:23)
[2017-09-03] MEDS: Losartan 25 MG TAB PO SCH (08:23)
[2017-09-03] MEDS: Polyethylene Glycol 3350 17 GM Packet PO SCH ×2 (08:24)
[2017-09-03] MEDS: Nystatin 500,000 UNITS/5 ML UDCUP SSW SCH ×4 (08:24→20:43)
[2017-09-03] MEDS: Fluticasone Propionate Nasal Spray 16 gm Bottle NASAL SCH (08:24)
[2017-09-03] MEDS: HYDROmorphone 2 MG TAB PO SCH ×2 (08:25→20:43)
[2017-09-03] MEDS: Enoxaparin Sodium 40 MG/0.4 ML SYRINGE SC SCH (08:25)
[2017-09-03] MEDS: Cefepime 2 GM VIAL IVPB SCH ×2 (08:26→20:47)
[2017-09-03] MEDS: Vancomycin HCl 1 GM in Sodium Chloride 0.9% 250 ML 250 ML IVPB SCH (08:26)
[2017-09-03] MEDS: Nystatin Powder 15 GM BOT TOP SCH ×2 (08:28→20:48)
[2017-09-03] MEDS: Nystatin/Triamcinolone Cream 15 GM TUBE TOP SCH ×2 (08:28→20:49)
[2017-09-03] MEDS: Levemir Flexpen 100 UNITS/ML PEN SC SCH ×2 (08:29→20:45)
[2017-09-03] MEDS: Proctozone-HC 2.5% Cream 30 GM TUBE TOP SCH (08:31)
[2017-09-03] MEDS: HumaLOG 300 UNITS/3 ML VIAL SC PRN ×2 (17:28→20:45)
[2017-09-03] MEDS: Loratadine 10 MG TAB PO PRN (17:28)
[2017-09-03] MEDS: Melatonin 3 MG TAB PO SCH (20:43)
[2017-09-03] MEDS: ALPRAZolam 0.5 MG TAB PO SCH (20:44)
[2017-09-03] MEDS: Montelukast Sodium 10 mg Tablet PO SCH (20:45)
[2017-09-03] MEDS: Pravastatin Sodium 20 MG TAB PO SCH (20:45)
[2017-09-03] MEDS: Ibuprofen 800 MG TAB PO PRN (23:49)
[2017-09-04] MEDS: Levothyroxine Sodium 112 MCG TAB PO SCH (05:45)
[2017-09-04 08:35] LABS: Vancomycin, Trough 23.3 ug/mL
[2017-09-04 08:37] LABS: Anion Gap 15 mmol/L (10-20); BUN (Urea Nitrogen) 38 mg/dL (9.8-20.1); Calc. Creatinine Clearance 86 mL/min (70-130); Calcium 8.9 mg/dL (7.8-10.44); Carbon Dioxide 28 mmol/L (22-29); Chloride 100 mmol/L (98-107); Estimated GFR-MDRD 41; Glucose 181 mg/dL (70-105); Potassium 4.4 mmol/L (3.5-5.1); Sodium 139 mmol/L (136-145)
[2017-09-04] MEDS: Enoxaparin Sodium 40 MG/0.4 ML SYRINGE SC SCH (08:59)
[2017-09-04] MEDS: Levemir Flexpen 100 UNITS/ML PEN SC SCH ×2 (09:00→20:45)
[2017-09-04] MEDS: fentaNYL 50 mcg/hour Patch TD SCH (09:02)
[2017-09-04] MEDS: Losartan 25 MG TAB PO SCH (09:04)
[2017-09-04] MEDS: Nystatin 500,000 UNITS/5 ML UDCUP SSW SCH ×4 (09:04→21:16)
[2017-09-04] MEDS: Cyclobenzaprine 10 MG TAB PO SCH ×3 (09:05→20:40)
[2017-09-04] MEDS: Fluconazole 100 MG TAB PO SCH (09:05)
[2017-09-04] MEDS: glipiZIDE 5 MG TAB PO SCH ×2 (09:05→17:08)
[2017-09-04] MEDS: DULoxetine 30 MG CAP PO SCH (09:05)
[2017-09-04] MEDS: Oxybutynin ER 5 MG TAB PO SCH (09:05)
[2017-09-04] MEDS: HYDROmorphone 2 MG TAB PO SCH ×2 (09:05→20:41)
[2017-09-04] MEDS: Saccharomyces boulardii 250 MG CAP PO SCH (09:05)
[2017-09-04] MEDS: Potassium Chloride 10 MEQ TAB PO SCH (09:05)
[2017-09-04] MEDS: Fluticasone Propionate Nasal Spray 16 gm Bottle NASAL SCH (09:06)
[2017-09-04] MEDS: Docusate 100 MG CAP PO SCH ×4 (09:06→20:52)
[2017-09-04] MEDS: Proctozone-HC 2.5% Cream 30 GM TUBE TOP SCH (09:06)
[2017-09-04] MEDS: Furosemide 40 MG TAB PO SCH ×2 (09:06→20:40)
[2017-09-04] MEDS: azaTHIOprine 50 MG TAB PO SCH ×2 (09:06→20:39)
[2017-09-04] MEDS: Polyethylene Glycol 3350 17 GM Packet PO SCH ×2 (09:07)
[2017-09-04] MEDS: Nystatin/Triamcinolone Cream 15 GM TUBE TOP SCH ×3 (09:07→21:53)
[2017-09-04] MEDS: Nystatin Powder 15 GM BOT TOP SCH ×3 (09:07→21:51)
[2017-09-04] MEDS: Vancomycin HCl 1 GM in Sodium Chloride 0.9% 250 ML 250 ML IVPB SCH (09:12)
[2017-09-04] MEDS: Cefepime 2 GM VIAL IVPB SCH ×2 (09:12→20:38)
[2017-09-04] MEDS: Acetaminophen/Codeine 30-300mg Tablet PO PRN (12:05)
[2017-09-04] MEDS: HumaLOG 300 UNITS/3 ML VIAL SC PRN ×3 (12:05→20:39)
[2017-09-04] MEDS: Vancomycin HCl 750 MG in Sodium Chloride 0.9% 250 ML 250 ML IVPB SCH (12:09)
[2017-09-04] MEDS: Pravastatin Sodium 20 MG TAB PO SCH (20:38)
[2017-09-04] MEDS: Melatonin 3 MG TAB PO SCH (20:39)
[2017-09-04] MEDS: Montelukast Sodium 10 mg Tablet PO SCH (20:40)
[2017-09-04] MEDS: ALPRAZolam 0.5 MG TAB PO SCH (20:41)
[2017-09-04] MEDS: Ibuprofen 800 MG TAB PO PRN (21:45)
[2017-09-05] MEDS: Acetaminophen/Codeine 30-300mg Tablet PO PRN ×2 (00:13→16:35)
[2017-09-05] MEDS: Nystatin Powder 15 GM BOT TOP SCH ×2 (02:06→20:13)
[2017-09-05] MEDS: Nystatin/Triamcinolone Cream 15 GM TUBE TOP SCH ×2 (02:07→20:14)
[2017-09-05] MEDS: Levothyroxine Sodium 112 MCG TAB PO SCH (05:26)
[2017-09-05] MEDS: Ibuprofen 800 MG TAB PO PRN (05:43)
[2017-09-05] MEDS: HumaLOG 300 UNITS/3 ML VIAL SC PRN ×2 (07:26→16:30)
[2017-09-05] MEDS: glipiZIDE 5 MG TAB PO SCH ×2 (07:26→16:30)
[2017-09-05] MEDS: Losartan 25 MG TAB PO SCH (08:14)
[2017-09-05] MEDS: Oxybutynin ER 5 MG TAB PO SCH (08:15)
[2017-09-05] MEDS: Saccharomyces boulardii 250 MG CAP PO SCH (08:15)
[2017-09-05] MEDS: Potassium Chloride 10 MEQ TAB PO SCH (08:15)
[2017-09-05] MEDS: Fluconazole 100 MG TAB PO SCH (08:15)
[2017-09-05] MEDS: Furosemide 40 MG TAB PO SCH ×2 (08:15→20:12)
[2017-09-05] MEDS: azaTHIOprine 50 MG TAB PO SCH ×2 (08:16→20:12)
[2017-09-05] MEDS: HYDROmorphone 2 MG TAB PO SCH ×2 (08:16→20:10)
[2017-09-05] MEDS: DULoxetine 30 MG CAP PO SCH (08:16)
[2017-09-05] MEDS: Cyclobenzaprine 10 MG TAB PO SCH ×3 (08:16→20:11)
[2017-09-05] MEDS: Docusate 100 MG CAP PO SCH ×4 (08:17→20:13)
[2017-09-05] MEDS: Cefepime 2 GM VIAL IVPB SCH ×2 (08:17→20:09)
[2017-09-05] MEDS: Levemir Flexpen 100 UNITS/ML PEN SC SCH ×2 (08:17→20:08)
[2017-09-05] MEDS: Proctozone-HC 2.5% Cream 30 GM TUBE TOP SCH (08:17)
[2017-09-05] MEDS: Polyethylene Glycol 3350 17 GM Packet PO SCH ×2 (08:18→08:19)
[2017-09-05] MEDS: Enoxaparin Sodium 40 MG/0.4 ML SYRINGE SC SCH (08:18)
[2017-09-05] MEDS: Fluticasone Propionate Nasal Spray 16 gm Bottle NASAL SCH (08:18)
[2017-09-05] MEDS: Nystatin 500,000 UNITS/5 ML UDCUP SSW SCH ×4 (08:23→20:09)
[2017-09-05] MEDS: Nicotine 21 MG PATCH TD SCH (08:51)
[2017-09-05] MEDS: Vancomycin HCl 750 MG in Sodium Chloride 0.9% 250 ML 250 ML IVPB SCH (12:44)
[2017-09-05] MEDS: Pravastatin Sodium 20 MG TAB PO SCH (20:10)
[2017-09-05] MEDS: Melatonin 3 MG TAB PO SCH (20:10)
[2017-09-05] MEDS: Montelukast Sodium 10 mg Tablet PO SCH (20:11)
[2017-09-05] MEDS: ALPRAZolam 0.5 MG TAB PO SCH (20:11)
[2017-09-06] MEDS: Levothyroxine Sodium 112 MCG TAB PO SCH (05:07)
[2017-09-06] MEDS: Acetaminophen/Codeine 30-300mg Tablet PO PRN ×2 (05:11→17:11)
[2017-09-06] MEDS: Benzocaine (Dental) 20% 10 gm Tube TOP PRN ×2 (05:13→07:32)
[2017-09-06] MEDS: glipiZIDE 5 MG TAB PO SCH ×2 (07:31→17:11)
[2017-09-06] MEDS: HumaLOG 300 UNITS/3 ML VIAL SC PRN ×4 (07:31→20:19)
[2017-09-06] MEDS: Cefepime 2 GM VIAL IVPB SCH ×2 (08:51→20:32)
[2017-09-06] MEDS: Enoxaparin Sodium 40 MG/0.4 ML SYRINGE SC SCH (08:53)
[2017-09-06] MEDS: Proctozone-HC 2.5% Cream 30 GM TUBE TOP SCH (08:53)
[2017-09-06] MEDS: Levemir Flexpen 100 UNITS/ML PEN SC SCH ×2 (08:53→20:21)
[2017-09-06] MEDS: Furosemide 40 MG TAB PO SCH ×2 (08:55→20:37)
[2017-09-06] MEDS: Saccharomyces boulardii 250 MG CAP PO SCH (08:55)
[2017-09-06] MEDS: Nystatin 500,000 UNITS/5 ML UDCUP SSW SCH ×4 (08:55→20:39)
[2017-09-06] MEDS: Docusate 100 MG CAP PO SCH ×4 (08:55→20:34)
[2017-09-06] MEDS: DULoxetine 30 MG CAP PO SCH (08:55)
[2017-09-06] MEDS: Fluconazole 100 MG TAB PO SCH (08:56)
[2017-09-06] MEDS: HYDROmorphone 2 MG TAB PO SCH ×2 (08:56→20:38)
[2017-09-06] MEDS: azaTHIOprine 50 MG TAB PO SCH ×2 (08:56→20:35)
[2017-09-06] MEDS: Cyclobenzaprine 10 MG TAB PO SCH ×3 (08:56→20:37)
[2017-09-06] MEDS: Losartan 25 MG TAB PO SCH (08:56)
[2017-09-06] MEDS: Potassium Chloride 10 MEQ TAB PO SCH (08:57)
[2017-09-06] MEDS: Oxybutynin ER 5 MG TAB PO SCH (08:57)
[2017-09-06] MEDS: Fluticasone Propionate Nasal Spray 16 gm Bottle NASAL SCH (08:58)
[2017-09-06] MEDS: Nicotine 21 MG PATCH TD SCH (08:58)
[2017-09-06] MEDS: Polyethylene Glycol 3350 17 GM Packet PO SCH ×2 (08:58→08:59)
[2017-09-06] MEDS: Nystatin Powder 15 GM BOT TOP SCH ×2 (09:00→20:50)
[2017-09-06] MEDS: Nystatin/Triamcinolone Cream 15 GM TUBE TOP SCH ×2 (09:00→20:50)
[2017-09-06 11:47] LABS: #Basophils 0.1 thou/uL (0.0-0.2); #Eosinphils 0.3 thou/uL (0.0-0.7); #Monocytes 0.7 thou/uL (0.11-0.59); #Neutrophils 6.2 thou/uL (1.40-6.50); %Basophils 1.4 % (0.0-1.0); %Eosinophils 3.9 % (0.0-10.0); %Lymphocytes 11.7 % (21.0-51.0); %Monocytes 8.2 % (0.0-10.0); %Neutrophils 74.8 % (42.0-75.0); Hemoglobin 10.6 g/dL (12.0-16.0); Mean Corpuscular HGB CONC 32.1 g/dL (32.0-36.0); Mean Corpuscular Hemoglobin 30.5 pg (27.0-31.0); Mean Platelet Volume 6.5 fL (7.4-10.4); Platelet Count 227 thou/uL (130-400); RBC Distribution Width 13.9 % (11.5-14.5); Red Blood Cell (RBC) Count 3.46 mill/uL (4.20-5.40); White Blood Cell (WBC) Count 8.3 thou/uL (4.8-10.8)
[2017-09-06 11:56] LABS: Vancomycin, Trough 26.4 ug/mL
[2017-09-06 11:59] LABS: Anion Gap 17 mmol/L (10-20); BUN (Urea Nitrogen) 51 mg/dL (9.8-20.1); Calc. Creatinine Clearance 71 mL/min (70-130); Calcium 8.9 mg/dL (7.8-10.44); Carbon Dioxide 26 mmol/L (22-29); Chloride 100 mmol/L (98-107); Estimated GFR-MDRD 32; Glucose 208 mg/dL (70-105); Potassium 4.9 mmol/L (3.5-5.1); Sodium 138 mmol/L (136-145)
[2017-09-06] MEDS: Vancomycin HCl 750 MG in Sodium Chloride 0.9% 250 ML 250 ML IVPB SCH (12:54)
[2017-09-06 17:09] LABS: CRP (Inflammatory) 1.88 mg/dL (= or < 0.5)
[2017-09-06] MEDS: Melatonin 3 MG TAB PO SCH (20:36)
[2017-09-06] MEDS: Pravastatin Sodium 20 MG TAB PO SCH (20:36)
[2017-09-06] MEDS: Montelukast Sodium 10 mg Tablet PO SCH (20:36)
[2017-09-06] MEDS: ALPRAZolam 0.5 MG TAB PO SCH (20:38)
[2017-09-07] MEDS: Levothyroxine Sodium 112 MCG TAB PO SCH (05:57)
[2017-09-07] MEDS: Proctozone-HC 2.5% Cream 30 GM TUBE TOP SCH (09:00)
[2017-09-07] MEDS: Nystatin Powder 15 GM BOT TOP SCH ×2 (09:00→21:26)
[2017-09-07] MEDS: Nystatin/Triamcinolone Cream 15 GM TUBE TOP SCH ×2 (09:00→21:27)
[2017-09-07] MEDS: Nystatin 500,000 UNITS/5 ML UDCUP SSW SCH ×4 (09:23→21:25)
[2017-09-07] MEDS: DULoxetine 30 MG CAP PO SCH (09:23)
[2017-09-07] MEDS: Saccharomyces boulardii 250 MG CAP PO SCH (09:24)
[2017-09-07] MEDS: glipiZIDE 5 MG TAB PO SCH ×2 (09:25→16:50)
[2017-09-07] MEDS: Potassium Chloride 10 MEQ TAB PO SCH (09:25)
[2017-09-07] MEDS: Docusate 100 MG CAP PO SCH ×4 (09:25→21:23)
[2017-09-07] MEDS: Losartan 25 MG TAB PO SCH (09:25)
[2017-09-07] MEDS: azaTHIOprine 50 MG TAB PO SCH ×2 (09:26→21:22)
[2017-09-07] MEDS: Cyclobenzaprine 10 MG TAB PO SCH ×3 (09:26→21:23)
[2017-09-07] MEDS: HYDROmorphone 2 MG TAB PO SCH ×2 (09:26→21:23)
[2017-09-07] MEDS: Fluconazole 100 MG TAB PO SCH (09:26)
[2017-09-07] MEDS: Furosemide 40 MG TAB PO SCH ×2 (09:27→21:23)
[2017-09-07] MEDS: Oxybutynin ER 5 MG TAB PO SCH (09:30)
[2017-09-07] MEDS: Cefepime 2 GM VIAL IVPB SCH ×2 (09:34→21:22)
[2017-09-07] MEDS: Polyethylene Glycol 3350 17 GM Packet PO SCH ×2 (09:34)
[2017-09-07] MEDS: Fluticasone Propionate Nasal Spray 16 gm Bottle NASAL SCH (09:35)
[2017-09-07] MEDS: Enoxaparin Sodium 40 MG/0.4 ML SYRINGE SC SCH (09:35)
[2017-09-07] MEDS: fentaNYL 50 mcg/hour Patch TD SCH (09:36)
[2017-09-07] MEDS: Nicotine 21 MG PATCH TD SCH (09:38)
[2017-09-07] MEDS: Levemir Flexpen 100 UNITS/ML PEN SC SCH ×2 (09:43→21:24)
[2017-09-07] MEDS: HumaLOG 300 UNITS/3 ML VIAL SC PRN ×4 (09:46→21:28)
[2017-09-07] MEDS: Vancomycin HCl 1 GM in Sodium Chloride 0.9% 250 ML 250 ML IVPB SCH (12:47)
[2017-09-07] MEDS: Acetaminophen/Codeine 30-300mg Tablet PO PRN (13:00)
[2017-09-07] MEDS: Benzocaine (Dental) 20% 10 gm Tube TOP PRN (13:02)
[2017-09-07] MEDS: Loratadine 10 MG TAB PO PRN (16:49)
[2017-09-07] MEDS: Ibuprofen 800 MG TAB PO PRN (16:49)
[2017-09-07] MEDS: ALPRAZolam 0.5 MG TAB PO SCH (21:22)
[2017-09-07] MEDS: Montelukast Sodium 10 mg Tablet PO SCH (21:25)
[2017-09-07] MEDS: Pravastatin Sodium 20 MG TAB PO SCH (21:25)
[2017-09-07] MEDS: Melatonin 3 MG TAB PO SCH (21:25)
[2017-09-08] MEDS: Acetaminophen/Codeine 30-300mg Tablet PO PRN ×2 (02:55→14:46)
[2017-09-08] MEDS: Levothyroxine Sodium 112 MCG TAB PO SCH (05:13)
[2017-09-08] MEDS: Potassium Chloride 10 MEQ TAB PO SCH (08:15)
[2017-09-08] MEDS: Saccharomyces boulardii 250 MG CAP PO SCH (08:16)
[2017-09-08] MEDS: DULoxetine 30 MG CAP PO SCH (08:16)
[2017-09-08] MEDS: HYDROmorphone 2 MG TAB PO SCH ×2 (08:16→20:28)
[2017-09-08] MEDS: Docusate 100 MG CAP PO SCH ×4 (08:16→20:30)
[2017-09-08] MEDS: Nystatin 500,000 UNITS/5 ML UDCUP SSW SCH ×4 (08:16→20:31)
[2017-09-08] MEDS: Oxybutynin ER 5 MG TAB PO SCH (08:17)
[2017-09-08] MEDS: Cyclobenzaprine 10 MG TAB PO SCH ×3 (08:17→20:29)
[2017-09-08] MEDS: Furosemide 40 MG TAB PO SCH ×2 (08:17→20:28)
[2017-09-08] MEDS: azaTHIOprine 50 MG TAB PO SCH ×2 (08:17→20:28)
[2017-09-08] MEDS: glipiZIDE 5 MG TAB PO SCH ×2 (08:17→17:05)
[2017-09-08] MEDS: Losartan 25 MG TAB PO SCH (08:17)
[2017-09-08] MEDS: Fluconazole 100 MG TAB PO SCH (08:17)
[2017-09-08] MEDS: Cefepime 2 GM VIAL IVPB SCH ×2 (08:17→20:32)
[2017-09-08] MEDS: Enoxaparin Sodium 40 MG/0.4 ML SYRINGE SC SCH (08:18)
[2017-09-08] MEDS: Levemir Flexpen 100 UNITS/ML PEN SC SCH ×2 (08:18→20:27)
[2017-09-08] MEDS: Fluticasone Propionate Nasal Spray 16 gm Bottle NASAL SCH (08:18)
[2017-09-08] MEDS: Proctozone-HC 2.5% Cream 30 GM TUBE TOP SCH (08:18)
[2017-09-08] MEDS: Polyethylene Glycol 3350 17 GM Packet PO SCH ×2 (08:19)
[2017-09-08] MEDS: Nystatin/Triamcinolone Cream 15 GM TUBE TOP SCH ×2 (08:19→21:54)
[2017-09-08] MEDS: Nystatin Powder 15 GM BOT TOP SCH ×2 (08:19→21:54)
[2017-09-08] MEDS: Nicotine 21 MG PATCH TD SCH (08:19)
[2017-09-08] MEDS: Loratadine 10 MG TAB PO PRN (15:54)
[2017-09-08] MEDS: HumaLOG 300 UNITS/3 ML VIAL SC PRN ×2 (17:05→20:28)
[2017-09-08] MEDS: Melatonin 3 MG TAB PO SCH (20:29)
[2017-09-08] MEDS: Pravastatin Sodium 20 MG TAB PO SCH (20:29)
[2017-09-08] MEDS: ALPRAZolam 0.5 MG TAB PO SCH (20:30)
[2017-09-08] MEDS: Montelukast Sodium 10 mg Tablet PO SCH (20:30)
[2017-09-09] MEDS: Levothyroxine Sodium 112 MCG TAB PO SCH (04:49)
[2017-09-09] MEDS: glipiZIDE 5 MG TAB PO SCH ×2 (07:23→16:18)
[2017-09-09] MEDS: DULoxetine 30 MG CAP PO SCH (08:40)
[2017-09-09] MEDS: Potassium Chloride 10 MEQ TAB PO SCH (08:40)
[2017-09-09] MEDS: Nystatin 500,000 UNITS/5 ML UDCUP SSW SCH ×4 (08:40→20:33)
[2017-09-09] MEDS: Saccharomyces boulardii 250 MG CAP PO SCH (08:41)
[2017-09-09] MEDS: Losartan 25 MG TAB PO SCH (08:41)
[2017-09-09] MEDS: Oxybutynin ER 5 MG TAB PO SCH (08:41)
[2017-09-09] MEDS: Furosemide 40 MG TAB PO SCH ×2 (08:41→20:37)
[2017-09-09] MEDS: Docusate 100 MG CAP PO SCH ×4 (08:41→20:37)
[2017-09-09] MEDS: Fluconazole 100 MG TAB PO SCH (08:42)
[2017-09-09] MEDS: HYDROmorphone 2 MG TAB PO SCH ×2 (08:42→20:34)
[2017-09-09] MEDS: azaTHIOprine 50 MG TAB PO SCH ×2 (08:43→20:37)
[2017-09-09] MEDS: Cefepime 2 GM VIAL IVPB SCH ×2 (08:44→20:40)
[2017-09-09] MEDS: Nicotine 21 MG PATCH TD SCH (08:44)
[2017-09-09] MEDS: Enoxaparin Sodium 40 MG/0.4 ML SYRINGE SC SCH (08:45)
[2017-09-09] MEDS: Polyethylene Glycol 3350 17 GM Packet PO SCH ×2 (08:46→09:24)
[2017-09-09] MEDS: Proctozone-HC 2.5% Cream 30 GM TUBE TOP SCH (08:47)
[2017-09-09] MEDS: Levemir Flexpen 100 UNITS/ML PEN SC SCH ×2 (08:47→20:39)
[2017-09-09] MEDS: Fluticasone Propionate Nasal Spray 16 gm Bottle NASAL SCH (08:50)
[2017-09-09] MEDS: Cyclobenzaprine 10 MG TAB PO SCH ×3 (09:16→20:37)
[2017-09-09] MEDS: Nystatin/Triamcinolone Cream 15 GM TUBE TOP SCH ×2 (09:24→20:41)
[2017-09-09] MEDS: Nystatin Powder 15 GM BOT TOP SCH ×2 (09:24→20:41)
[2017-09-09] MEDS: Vancomycin HCl 1 GM in Sodium Chloride 0.9% 250 ML 250 ML IVPB SCH (13:27)
[2017-09-09] MEDS: Acetaminophen/Codeine 30-300mg Tablet PO PRN (13:28)
[2017-09-09] MEDS: Loratadine 10 MG TAB PO PRN (16:35)
[2017-09-09] MEDS: HumaLOG 300 UNITS/3 ML VIAL SC PRN ×2 (17:05→20:39)
[2017-09-09] MEDS: Pravastatin Sodium 20 MG TAB PO SCH (20:36)
[2017-09-09] MEDS: Melatonin 3 MG TAB PO SCH (20:36)
[2017-09-09] MEDS: Montelukast Sodium 10 mg Tablet PO SCH (20:36)
[2017-09-09] MEDS: ALPRAZolam 0.5 MG TAB PO SCH (20:38)
[2017-09-10] MEDS: Acetaminophen/Codeine 30-300mg Tablet PO PRN ×2 (03:45→15:33)
[2017-09-10] MEDS: Levothyroxine Sodium 112 MCG TAB PO SCH (05:40)
[2017-09-10] MEDS: Nystatin Powder 15 GM BOT TOP SCH ×3 (06:36→21:06)
[2017-09-10] MEDS: glipiZIDE 5 MG TAB PO SCH ×2 (07:50→17:17)
[2017-09-10] MEDS: HumaLOG 300 UNITS/3 ML VIAL SC PRN ×4 (07:50→20:53)
[2017-09-10] MEDS: azaTHIOprine 50 MG TAB PO SCH ×2 (08:56→20:44)
[2017-09-10] MEDS: Cefepime 2 GM VIAL IVPB SCH ×2 (08:56→20:47)
[2017-09-10] MEDS: Cyclobenzaprine 10 MG TAB PO SCH ×3 (08:57→20:45)
[2017-09-10] MEDS: DULoxetine 30 MG CAP PO SCH (08:57)
[2017-09-10] MEDS: Docusate 100 MG CAP PO SCH ×4 (08:57→20:46)
[2017-09-10] MEDS: Enoxaparin Sodium 40 MG/0.4 ML SYRINGE SC SCH (08:58)
[2017-09-10] MEDS: fentaNYL 50 mcg/hour Patch TD SCH (08:58)
[2017-09-10] MEDS: Fluticasone Propionate Nasal Spray 16 gm Bottle NASAL SCH (09:00)
[2017-09-10] MEDS: Fluconazole 100 MG TAB PO SCH (09:00)
[2017-09-10] MEDS: HYDROmorphone 2 MG TAB PO SCH ×2 (09:01→20:42)
[2017-09-10] MEDS: Proctozone-HC 2.5% Cream 30 GM TUBE TOP SCH (09:01)
[2017-09-10] MEDS: Furosemide 40 MG TAB PO SCH ×2 (09:01→20:45)
[2017-09-10] MEDS: Levemir Flexpen 100 UNITS/ML PEN SC SCH ×2 (09:03→20:53)
[2017-09-10] MEDS: Losartan 25 MG TAB PO SCH (09:04)
[2017-09-10] MEDS: Polyethylene Glycol 3350 17 GM Packet PO SCH ×2 (09:06→09:07)
[2017-09-10] MEDS: Oxybutynin ER 5 MG TAB PO SCH (09:06)
[2017-09-10] MEDS: Potassium Chloride 10 MEQ TAB PO SCH (09:07)
[2017-09-10] MEDS: Saccharomyces boulardii 250 MG CAP PO SCH (09:08)
[2017-09-10] MEDS: Nystatin 500,000 UNITS/5 ML UDCUP SSW SCH ×5 (09:09→20:42)
[2017-09-10] MEDS: Nicotine 21 MG PATCH TD SCH (09:09)
[2017-09-10] MEDS: Nystatin/Triamcinolone Cream 15 GM TUBE TOP SCH ×2 (09:10→21:05)
[2017-09-10] MEDS ORDERED: Sterile Water 10 ML ONE (14:59)
[2017-09-10] MEDS: Activase 2 MG VIAL CATH PRN (15:21)
[2017-09-10] MEDS: Pravastatin Sodium 20 MG TAB PO SCH (20:44)
[2017-09-10] MEDS: Montelukast Sodium 10 mg Tablet PO SCH (20:44)
[2017-09-10] MEDS: Melatonin 3 MG TAB PO SCH (20:45)
[2017-09-10] MEDS: ALPRAZolam 0.5 MG TAB PO SCH (20:46)
[2017-09-11] MEDS: Benzocaine (Dental) 20% 10 gm Tube TOP PRN (00:47)
[2017-09-11] MEDS: Acetaminophen/Codeine 30-300mg Tablet PO PRN ×2 (03:31→16:33)
[2017-09-11] MEDS: Levothyroxine Sodium 112 MCG TAB PO SCH (05:20)
[2017-09-11] MEDS: glipiZIDE 5 MG TAB PO SCH ×2 (08:07→16:33)
[2017-09-11] MEDS: HumaLOG 300 UNITS/3 ML VIAL SC PRN ×4 (08:08→20:30)
[2017-09-11] MEDS: Furosemide 40 MG TAB PO SCH ×3 (09:26→21:36)
[2017-09-11] MEDS: azaTHIOprine 50 MG TAB PO SCH ×2 (09:26→20:27)
[2017-09-11] MEDS: Cefepime 2 GM VIAL IVPB SCH ×2 (09:26→20:23)
[2017-09-11] MEDS: Docusate 100 MG CAP PO SCH ×4 (09:27→20:33)
[2017-09-11] MEDS: Cyclobenzaprine 10 MG TAB PO SCH ×3 (09:27→20:33)
[2017-09-11] MEDS: Enoxaparin Sodium 40 MG/0.4 ML SYRINGE SC SCH (09:28)
[2017-09-11] MEDS: DULoxetine 30 MG CAP PO SCH (09:28)
[2017-09-11] MEDS: Oxybutynin ER 5 MG TAB PO SCH (09:29)
[2017-09-11] MEDS: Fluconazole 100 MG TAB PO SCH (09:30)
[2017-09-11] MEDS: HYDROmorphone 2 MG TAB PO SCH ×2 (09:30→20:24)
[2017-09-11] MEDS: Fluticasone Propionate Nasal Spray 16 gm Bottle NASAL SCH (09:30)
[2017-09-11] MEDS: Proctozone-HC 2.5% Cream 30 GM TUBE TOP SCH (09:33)
[2017-09-11] MEDS: Levemir Flexpen 100 UNITS/ML PEN SC SCH ×2 (09:33→20:31)
[2017-09-11] MEDS: Losartan 25 MG TAB PO SCH (09:34)
[2017-09-11] MEDS: Nicotine 21 MG PATCH TD SCH (09:34)
[2017-09-11] MEDS: Polyethylene Glycol 3350 17 GM Packet PO SCH ×2 (09:35→09:36)
[2017-09-11] MEDS: Nystatin/Triamcinolone Cream 15 GM TUBE TOP SCH ×2 (09:35→20:36)
[2017-09-11] MEDS: Nystatin Powder 15 GM BOT TOP SCH ×2 (09:35→20:36)
[2017-09-11] MEDS: Saccharomyces boulardii 250 MG CAP PO SCH (09:36)
[2017-09-11] MEDS: Potassium Chloride 10 MEQ TAB PO SCH (09:36)
[2017-09-11] MEDS: Nystatin 500,000 UNITS/5 ML UDCUP SSW SCH ×4 (10:02→20:24)
[2017-09-11] MEDS: Vancomycin HCl 1 GM in Sodium Chloride 0.9% 250 ML 250 ML IVPB SCH ×2 (12:07→13:30)
[2017-09-11 12:21] LABS: Vancomycin, Trough 20.3 ug/mL
[2017-09-11] MEDS: Pravastatin Sodium 20 MG TAB PO SCH (20:26)
[2017-09-11] MEDS: Melatonin 3 MG TAB PO SCH (20:26)
[2017-09-11] MEDS: Montelukast Sodium 10 mg Tablet PO SCH (20:27)
[2017-09-11] MEDS: ALPRAZolam 0.5 MG TAB PO SCH (20:33)
[2017-09-12] MEDS: Levothyroxine Sodium 112 MCG TAB PO SCH (06:00)
[2017-09-12] MEDS: Acetaminophen/Codeine 30-300mg Tablet PO PRN (06:06)
[2017-09-12] MEDS: glipiZIDE 5 MG TAB PO SCH ×2 (07:35→16:46)
[2017-09-12] MEDS: HumaLOG 300 UNITS/3 ML VIAL SC PRN ×4 (08:00→20:58)
[2017-09-12] MEDS: Levemir Flexpen 100 UNITS/ML PEN SC SCH ×2 (09:11→20:58)
[2017-09-12] MEDS: Enoxaparin Sodium 40 MG/0.4 ML SYRINGE SC SCH (09:14)
[2017-09-12] MEDS: Cefepime 2 GM VIAL IVPB SCH ×2 (09:16→20:46)
[2017-09-12] MEDS: azaTHIOprine 50 MG TAB PO SCH ×2 (09:18→20:46)
[2017-09-12] MEDS: Nystatin 500,000 UNITS/5 ML UDCUP SSW SCH ×4 (09:18→20:57)
[2017-09-12] MEDS: Saccharomyces boulardii 250 MG CAP PO SCH (09:18)
[2017-09-12] MEDS: DULoxetine 30 MG CAP PO SCH (09:19)
[2017-09-12] MEDS: HYDROmorphone 2 MG TAB PO SCH ×2 (09:19→20:46)
[2017-09-12] MEDS: Cyclobenzaprine 10 MG TAB PO SCH ×3 (09:19→20:46)
[2017-09-12] MEDS: Fluconazole 100 MG TAB PO SCH (09:19)
[2017-09-12] MEDS: Furosemide 40 MG TAB PO SCH ×2 (09:20→20:46)
[2017-09-12] MEDS: Docusate 100 MG CAP PO SCH ×4 (09:20→20:46)
[2017-09-12] MEDS: Oxybutynin ER 5 MG TAB PO SCH (09:20)
[2017-09-12] MEDS: Losartan 25 MG TAB PO SCH (09:21)
[2017-09-12] MEDS: Proctozone-HC 2.5% Cream 30 GM TUBE TOP SCH (09:21)
[2017-09-12] MEDS: Benzocaine (Dental) 20% 10 gm Tube TOP PRN (09:21)
[2017-09-12] MEDS: Potassium Chloride 10 MEQ TAB PO SCH (09:21)
[2017-09-12] MEDS: Fluticasone Propionate Nasal Spray 16 gm Bottle NASAL SCH (09:22)
[2017-09-12] MEDS: Nicotine 21 MG PATCH TD SCH (09:22)
[2017-09-12] MEDS: Nystatin Powder 15 GM BOT TOP SCH ×2 (09:23→20:59)
[2017-09-12] MEDS: Nystatin/Triamcinolone Cream 15 GM TUBE TOP SCH ×2 (09:23→20:59)
[2017-09-12] MEDS: Polyethylene Glycol 3350 17 GM Packet PO SCH ×2 (09:24)
[2017-09-12] MEDS: ALPRAZolam 0.5 MG TAB PO SCH (20:45)
[2017-09-12] MEDS: Melatonin 3 MG TAB PO SCH (20:46)
[2017-09-12] MEDS: Pravastatin Sodium 20 MG TAB PO SCH (20:46)
[2017-09-12] MEDS: Montelukast Sodium 10 mg Tablet PO SCH (20:46)
[2017-09-13] MEDS: Levothyroxine Sodium 112 MCG TAB PO SCH (05:31)
[2017-09-13] MEDS: Nystatin 500,000 UNITS/5 ML UDCUP SSW SCH ×4 (08:21→20:30)
[2017-09-13] MEDS: Saccharomyces boulardii 250 MG CAP PO SCH (08:22)
[2017-09-13] MEDS: DULoxetine 30 MG CAP PO SCH (08:22)
[2017-09-13] MEDS: Docusate 100 MG CAP PO SCH ×4 (08:22→20:32)
[2017-09-13] MEDS: Potassium Chloride 10 MEQ TAB PO SCH (08:22)
[2017-09-13] MEDS: Furosemide 40 MG TAB PO SCH ×2 (08:22→20:31)
[2017-09-13] MEDS: Oxybutynin ER 5 MG TAB PO SCH (08:22)
[2017-09-13] MEDS: glipiZIDE 5 MG TAB PO SCH ×2 (08:22→16:45)
[2017-09-13] MEDS: Losartan 25 MG TAB PO SCH (08:22)
[2017-09-13] MEDS: HYDROmorphone 2 MG TAB PO SCH ×2 (08:23→20:30)
[2017-09-13] MEDS: Cyclobenzaprine 10 MG TAB PO SCH ×3 (08:23→20:32)
[2017-09-13] MEDS: azaTHIOprine 50 MG TAB PO SCH ×2 (08:23→20:32)
[2017-09-13] MEDS: Cefepime 2 GM VIAL IVPB SCH ×2 (08:24→20:33)
[2017-09-13] MEDS: Enoxaparin Sodium 40 MG/0.4 ML SYRINGE SC SCH (08:24)
[2017-09-13] MEDS: Proctozone-HC 2.5% Cream 30 GM TUBE TOP SCH (08:25)
[2017-09-13] MEDS: Fluticasone Propionate Nasal Spray 16 gm Bottle NASAL SCH (08:25)
[2017-09-13] MEDS: fentaNYL 50 mcg/hour Patch TD SCH (08:25)
[2017-09-13] MEDS: Nystatin/Triamcinolone Cream 15 GM TUBE TOP SCH ×2 (08:26→22:13)
[2017-09-13] MEDS: Nystatin Powder 15 GM BOT TOP SCH ×2 (08:26→22:12)
[2017-09-13] MEDS: Nicotine 21 MG PATCH TD SCH (08:26)
[2017-09-13] MEDS: Levemir Flexpen 100 UNITS/ML PEN SC SCH ×2 (08:26→20:34)
[2017-09-13] MEDS: Polyethylene Glycol 3350 17 GM Packet PO SCH ×2 (08:27)
[2017-09-13] MEDS: Loratadine 10 MG TAB PO PRN (08:35)
[2017-09-13 11:16] LABS: #Basophils 0.1 thou/uL (0.0-0.2); #Eosinphils 0.4 thou/uL (0.0-0.7); #Lymphocytes 1.2 thou/uL (1.20-3.40); #Monocytes 0.6 thou/uL (0.11-0.59); #Neutrophils 6.6 thou/uL (1.40-6.50); %Basophils 1.3 % (0.0-1.0); %Eosinophils 4.4 % (0.0-10.0); %Lymphocytes 13.6 % (21.0-51.0); %Monocytes 6.9 % (0.0-10.0); %Neutrophils 73.9 % (42.0-75.0); Hemoglobin 10.5 g/dL (12.0-16.0); Mean Corpuscular HGB CONC 32.7 g/dL (32.0-36.0); Mean Corpuscular Hemoglobin 30.8 pg (27.0-31.0); Mean Corpuscular Volume 94.3 fl (81.0-99.0); Mean Platelet Volume 6.4 fL (7.4-10.4); Platelet Count 189 thou/uL (130-400); RBC Distribution Width 13.5 % (11.5-14.5); White Blood Cell (WBC) Count 8.9 thou/uL (4.8-10.8)
[2017-09-13 11:19] LABS: Anion Gap 17 mmol/L (10-20); BUN (Urea Nitrogen) 84 mg/dL (9.8-20.1); Calc. Creatinine Clearance 40 mL/min (70-130); Calcium 8.9 mg/dL (7.8-10.44); Carbon Dioxide 25 mmol/L (22-29); Chloride 100 mmol/L (98-107); Estimated GFR-MDRD 18; Glucose 197 mg/dL (70-105); Sodium 137 mmol/L (136-145)
[2017-09-13 11:53] LABS: Vancomycin, Trough 22.1 ug/mL
[2017-09-13] MEDS: Vancomycin HCl 1 GM in Sodium Chloride 0.9% 250 ML 250 ML IVPB SCH (12:59)
[2017-09-13] MEDS: Acetaminophen/Codeine 30-300mg Tablet PO PRN (16:45)
[2017-09-13] MEDS: HumaLOG 300 UNITS/3 ML VIAL SC PRN ×2 (16:46→20:34)
[2017-09-13 18:01] LABS: CRP (Inflammatory) 1.94 mg/dL (= or < 0.5)
[2017-09-13] MEDS: Montelukast Sodium 10 mg Tablet PO SCH (20:30)
[2017-09-13] MEDS: ALPRAZolam 0.5 MG TAB PO SCH (20:31)
[2017-09-13] MEDS: Melatonin 3 MG TAB PO SCH (20:32)
[2017-09-13] MEDS: Pravastatin Sodium 20 MG TAB PO SCH (20:32)
[2017-09-14] MEDS: Acetaminophen/Codeine 30-300mg Tablet PO PRN ×2 (05:37→18:03)
[2017-09-14] MEDS: Levothyroxine Sodium 112 MCG TAB PO SCH (05:38)
[2017-09-14] MEDS: Cefepime 2 GM VIAL IVPB SCH ×2 (08:46→21:02)
[2017-09-14] MEDS: Levemir Flexpen 100 UNITS/ML PEN SC SCH ×2 (08:47→21:06)
[2017-09-14] MEDS: Nystatin 500,000 UNITS/5 ML UDCUP SSW SCH ×4 (08:47→20:57)
[2017-09-14] MEDS: Cyclobenzaprine 10 MG TAB PO SCH ×3 (08:48→20:58)
[2017-09-14] MEDS: Furosemide 40 MG TAB PO SCH ×2 (08:48→20:59)
[2017-09-14] MEDS: Potassium Chloride 10 MEQ TAB PO SCH (08:48)
[2017-09-14] MEDS: Docusate 100 MG CAP PO SCH ×4 (08:48→20:57)
[2017-09-14] MEDS: Oxybutynin ER 5 MG TAB PO SCH (08:48)
[2017-09-14] MEDS: Enoxaparin Sodium 40 MG/0.4 ML SYRINGE SC SCH (08:48)
[2017-09-14] MEDS: HYDROmorphone 2 MG TAB PO SCH ×2 (08:48→20:59)
[2017-09-14] MEDS: Losartan 25 MG TAB PO SCH (08:48)
[2017-09-14] MEDS: Saccharomyces boulardii 250 MG CAP PO SCH (08:48)
[2017-09-14] MEDS: glipiZIDE 5 MG TAB PO SCH ×2 (08:48→17:05)
[2017-09-14] MEDS: DULoxetine 30 MG CAP PO SCH (08:49)
[2017-09-14] MEDS: Fluticasone Propionate Nasal Spray 16 gm Bottle NASAL SCH (08:49)
[2017-09-14] MEDS: Proctozone-HC 2.5% Cream 30 GM TUBE TOP SCH (08:49)
[2017-09-14] MEDS: azaTHIOprine 50 MG TAB PO SCH ×2 (08:49→20:57)
[2017-09-14] MEDS: Nystatin Powder 15 GM BOT TOP SCH ×2 (08:50→21:03)
[2017-09-14] MEDS: Polyethylene Glycol 3350 17 GM Packet PO SCH ×2 (08:50→08:51)
[2017-09-14] MEDS: Nystatin/Triamcinolone Cream 15 GM TUBE TOP SCH ×2 (08:50→21:03)
[2017-09-14] MEDS: Nicotine 21 MG PATCH TD SCH (08:50)
[2017-09-14] MEDS: HumaLOG 300 UNITS/3 ML VIAL SC PRN ×2 (12:07→21:05)
[2017-09-14] MEDS: Melatonin 3 MG TAB PO SCH (20:57)
[2017-09-14] MEDS: Pravastatin Sodium 20 MG TAB PO SCH (20:58)
[2017-09-14] MEDS: Montelukast Sodium 10 mg Tablet PO SCH (21:00)
[2017-09-14] MEDS: ALPRAZolam 0.5 MG TAB PO SCH (21:05)
[2017-09-15] MEDS: Levothyroxine Sodium 112 MCG TAB PO SCH (05:57)
[2017-09-15] MEDS: Acetaminophen/Codeine 30-300mg Tablet PO PRN ×2 (05:58→23:03)
[2017-09-15] MEDS: glipiZIDE 5 MG TAB PO SCH ×2 (07:39→17:11)
[2017-09-15] MEDS: Cefepime 2 GM VIAL IVPB SCH ×2 (09:35→20:30)
[2017-09-15] MEDS: azaTHIOprine 50 MG TAB PO SCH ×2 (09:35→20:59)
[2017-09-15] MEDS: DULoxetine 30 MG CAP PO SCH (09:36)
[2017-09-15] MEDS: Docusate 100 MG CAP PO SCH ×4 (09:36→20:31)
[2017-09-15] MEDS: Cyclobenzaprine 10 MG TAB PO SCH ×3 (09:36→20:31)
[2017-09-15] MEDS: Enoxaparin Sodium 40 MG/0.4 ML SYRINGE SC SCH (09:37)
[2017-09-15] MEDS: Furosemide 40 MG TAB PO SCH ×2 (09:38→20:31)
[2017-09-15] MEDS: Fluticasone Propionate Nasal Spray 16 gm Bottle NASAL SCH (09:38)
[2017-09-15] MEDS: Levemir Flexpen 100 UNITS/ML PEN SC SCH ×2 (09:40→20:33)
[2017-09-15] MEDS: Losartan 25 MG TAB PO SCH (09:40)
[2017-09-15] MEDS: Nicotine 21 MG PATCH TD SCH (09:43)
[2017-09-15] MEDS: Nystatin 500,000 UNITS/5 ML UDCUP SSW SCH ×4 (09:43→20:29)
[2017-09-15] MEDS: HYDROmorphone 2 MG TAB PO SCH ×2 (09:44→20:30)
[2017-09-15] MEDS: Saccharomyces boulardii 250 MG CAP PO SCH (09:44)
[2017-09-15] MEDS: Polyethylene Glycol 3350 17 GM Packet PO SCH ×2 (09:45→09:46)
[2017-09-15] MEDS: Potassium Chloride 10 MEQ TAB PO SCH (09:46)
[2017-09-15] MEDS: HumaLOG 300 UNITS/3 ML VIAL SC PRN ×3 (09:54→20:50)
[2017-09-15] MEDS ORDERED: Vancomycin HCl 750 MG in Sodium Chloride 0.9% 250 ML 250 ML IVPB SCH (12:00)
[2017-09-15] MEDS: Nystatin Powder 15 GM BOT TOP SCH ×2 (13:29→20:47)
[2017-09-15] MEDS: Proctozone-HC 2.5% Cream 30 GM TUBE TOP SCH (13:29)
[2017-09-15] MEDS: Nystatin/Triamcinolone Cream 15 GM TUBE TOP SCH ×2 (13:29→20:47)
[2017-09-15] MEDS: Oxybutynin ER 5 MG TAB PO SCH (13:30)
[2017-09-15] MEDS: Ibuprofen 800 MG TAB PO PRN (17:11)
[2017-09-15] MEDS: Montelukast Sodium 10 mg Tablet PO SCH (20:31)
[2017-09-15] MEDS: Melatonin 3 MG TAB PO SCH (20:31)
[2017-09-15] MEDS: Pravastatin Sodium 20 MG TAB PO SCH (20:31)
[2017-09-15] MEDS: ALPRAZolam 0.5 MG TAB PO SCH (20:31)
[2017-09-16] MEDS: Levothyroxine Sodium 112 MCG TAB PO SCH (05:07)
[2017-09-16] MEDS: Enoxaparin Sodium 40 MG/0.4 ML SYRINGE SC SCH (08:25)
[2017-09-16] MEDS: DULoxetine 30 MG CAP PO SCH (08:25)
[2017-09-16] MEDS: Potassium Chloride 10 MEQ TAB PO SCH (08:26)
[2017-09-16] MEDS: HYDROmorphone 2 MG TAB PO SCH ×2 (08:26→21:15)
[2017-09-16] MEDS: Saccharomyces boulardii 250 MG CAP PO SCH (08:26)
[2017-09-16] MEDS: Furosemide 40 MG TAB PO SCH ×2 (08:26→21:15)
[2017-09-16] MEDS: Oxybutynin ER 5 MG TAB PO SCH (08:27)
[2017-09-16] MEDS: Cyclobenzaprine 10 MG TAB PO SCH ×3 (08:27→21:00)
[2017-09-16] MEDS: glipiZIDE 5 MG TAB PO SCH ×2 (08:27→16:47)
[2017-09-16] MEDS: Losartan 25 MG TAB PO SCH (08:27)
[2017-09-16] MEDS: Docusate 100 MG CAP PO SCH ×4 (08:27→21:14)
[2017-09-16] MEDS: fentaNYL 50 mcg/hour Patch TD SCH (08:28)
[2017-09-16] MEDS: Nystatin 500,000 UNITS/5 ML UDCUP SSW SCH ×4 (08:28→21:11)
[2017-09-16] MEDS: azaTHIOprine 50 MG TAB PO SCH ×2 (08:28→21:15)
[2017-09-16] MEDS: Levemir Flexpen 100 UNITS/ML PEN SC SCH ×2 (08:29→21:22)
[2017-09-16] MEDS: Cefepime 2 GM VIAL IVPB SCH ×2 (08:30→21:13)
[2017-09-16] MEDS: Proctozone-HC 2.5% Cream 30 GM TUBE TOP SCH (08:31)
[2017-09-16] MEDS: Nicotine 21 MG PATCH TD SCH (08:31)
[2017-09-16] MEDS: Fluticasone Propionate Nasal Spray 16 gm Bottle NASAL SCH (08:31)
[2017-09-16] MEDS: Nystatin/Triamcinolone Cream 15 GM TUBE TOP SCH ×2 (09:17→21:21)
[2017-09-16] MEDS: Nystatin Powder 15 GM BOT TOP SCH ×2 (09:17→21:20)
[2017-09-16] MEDS: Polyethylene Glycol 3350 17 GM Packet PO SCH ×2 (09:17)
[2017-09-16] MEDS: Acetaminophen/Codeine 30-300mg Tablet PO PRN (14:07)
[2017-09-16] MEDS: HumaLOG 300 UNITS/3 ML VIAL SC PRN ×2 (16:39→21:22)
[2017-09-16] MEDS: Montelukast Sodium 10 mg Tablet PO SCH (21:14)
[2017-09-16] MEDS: Melatonin 3 MG TAB PO SCH (21:14)
[2017-09-16] MEDS: Pravastatin Sodium 20 MG TAB PO SCH (21:14)
[2017-09-16] MEDS: ALPRAZolam 0.5 MG TAB PO SCH (21:15)
[2017-09-17] MEDS: Acetaminophen/Codeine 30-300mg Tablet PO PRN ×2 (02:31→14:29)
[2017-09-17] MEDS: Levothyroxine Sodium 112 MCG TAB PO SCH (05:27)
[2017-09-17] MEDS: azaTHIOprine 50 MG TAB PO SCH ×2 (08:08→21:01)
[2017-09-17] MEDS: Oxybutynin ER 5 MG TAB PO SCH (08:08)
[2017-09-17] MEDS: Furosemide 40 MG TAB PO SCH (08:08)
[2017-09-17] MEDS: Losartan 25 MG TAB PO SCH (08:08)
[2017-09-17] MEDS: Nystatin 500,000 UNITS/5 ML UDCUP SSW SCH ×4 (08:08→20:58)
[2017-09-17] MEDS: glipiZIDE 5 MG TAB PO SCH ×2 (08:08→16:52)
[2017-09-17] MEDS: Docusate 100 MG CAP PO SCH ×4 (08:09→21:01)
[2017-09-17] MEDS: HYDROmorphone 2 MG TAB PO SCH ×2 (08:09→20:59)
[2017-09-17] MEDS: Cyclobenzaprine 10 MG TAB PO SCH ×3 (08:09→21:01)
[2017-09-17] MEDS: Saccharomyces boulardii 250 MG CAP PO SCH (08:09)
[2017-09-17] MEDS: DULoxetine 30 MG CAP PO SCH (08:09)
[2017-09-17] MEDS: Potassium Chloride 10 MEQ TAB PO SCH (08:09)
[2017-09-17] MEDS: Levemir Flexpen 100 UNITS/ML PEN SC SCH ×2 (08:10→21:03)
[2017-09-17] MEDS: Enoxaparin Sodium 40 MG/0.4 ML SYRINGE SC SCH (08:10)
[2017-09-17] MEDS: Cefepime 2 GM VIAL IVPB SCH ×2 (08:11→21:01)
[2017-09-17] MEDS: Nicotine 21 MG PATCH TD SCH (08:11)
[2017-09-17] MEDS: Fluticasone Propionate Nasal Spray 16 gm Bottle NASAL SCH (08:11)
[2017-09-17] MEDS: Polyethylene Glycol 3350 17 GM Packet PO SCH ×2 (08:12)
[2017-09-17] MEDS: Nystatin/Triamcinolone Cream 15 GM TUBE TOP SCH ×2 (08:13→21:02)
[2017-09-17] MEDS: Nystatin Powder 15 GM BOT TOP SCH ×2 (08:13→21:34)
[2017-09-17] MEDS: Proctozone-HC 2.5% Cream 30 GM TUBE TOP SCH (08:14)
[2017-09-17] MEDS: HumaLOG 300 UNITS/3 ML VIAL SC PRN ×3 (11:37→21:03)
[2017-09-17] MEDS: Montelukast Sodium 10 mg Tablet PO SCH (21:00)
[2017-09-17] MEDS: Melatonin 3 MG TAB PO SCH (21:01)
[2017-09-17] MEDS: Pravastatin Sodium 20 MG TAB PO SCH (21:01)
[2017-09-17] MEDS: ALPRAZolam 0.5 MG TAB PO SCH (21:07)
[2017-09-18] MEDS: Ondansetron ODT 4 MG TAB PO PRN (02:29)
[2017-09-18] MEDS: Levothyroxine Sodium 112 MCG TAB PO SCH (05:14)
[2017-09-18] MEDS: Acetaminophen/Codeine 30-300mg Tablet PO PRN (05:21)
[2017-09-18] MEDS: HYDROmorphone 2 MG TAB PO SCH ×2 (08:27→20:33)
[2017-09-18] MEDS: azaTHIOprine 50 MG TAB PO SCH ×2 (08:28→20:32)
[2017-09-18] MEDS: Saccharomyces boulardii 250 MG CAP PO SCH (08:28)
[2017-09-18] MEDS: Cyclobenzaprine 10 MG TAB PO SCH ×3 (08:28→20:32)
[2017-09-18] MEDS: Docusate 100 MG CAP PO SCH ×4 (08:28→20:32)
[2017-09-18] MEDS: Oxybutynin ER 5 MG TAB PO SCH (08:28)
[2017-09-18] MEDS: DULoxetine 30 MG CAP PO SCH (08:28)
[2017-09-18] MEDS: Nystatin 500,000 UNITS/5 ML UDCUP SSW SCH ×4 (08:28→20:31)
[2017-09-18] MEDS: Fluticasone Propionate Nasal Spray 16 gm Bottle NASAL SCH (08:29)
[2017-09-18] MEDS: Proctozone-HC 2.5% Cream 30 GM TUBE TOP SCH (08:29)
[2017-09-18] MEDS: glipiZIDE 5 MG TAB PO SCH ×2 (08:29→16:38)
[2017-09-18] MEDS: Cefepime 2 GM VIAL IVPB SCH ×2 (08:29→20:30)
[2017-09-18] MEDS: Nicotine 21 MG PATCH TD SCH (08:30)
[2017-09-18] MEDS: Nystatin/Triamcinolone Cream 15 GM TUBE TOP SCH ×2 (08:30→20:37)
[2017-09-18] MEDS: Nystatin Powder 15 GM BOT TOP SCH ×2 (08:30→20:37)
[2017-09-18] MEDS: Levemir Flexpen 100 UNITS/ML PEN SC SCH ×2 (08:30→20:48)
[2017-09-18] MEDS: Polyethylene Glycol 3350 17 GM Packet PO SCH ×2 (08:30)
[2017-09-18 11:26] LABS: Vancomycin, Random 21.3 ug/mL (See Comment)
[2017-09-18 11:32] LABS: Anion Gap 19 mmol/L (10-20); BUN (Urea Nitrogen) 103 mg/dL (9.8-20.1); Calc. Creatinine Clearance 30 mL/min (70-130); Calcium 8.9 mg/dL (7.8-10.44); Carbon Dioxide 21 mmol/L (22-29); Chloride 103 mmol/L (98-107); Estimated GFR-MDRD 13; Glucose 198 mg/dL (70-105); Sodium 138 mmol/L (136-145)
[2017-09-18] MEDS: HumaLOG 300 UNITS/3 ML VIAL SC PRN ×2 (12:40→20:47)
[2017-09-18] MEDS: Potassium Chloride 10 MEQ TAB PO SCH (12:51)
[2017-09-18] MEDS ORDERED: Sodium Chloride 0.9% 1,000 ML IV SCH (13:00)
[2017-09-18] MEDS: Pravastatin Sodium 20 MG TAB PO SCH (20:32)
[2017-09-18] MEDS: ALPRAZolam 0.5 MG TAB PO SCH (20:32)
[2017-09-18] MEDS: Melatonin 3 MG TAB PO SCH (20:32)
[2017-09-18] MEDS: Montelukast Sodium 10 mg Tablet PO SCH (20:32)
[2017-09-19] MEDS: Levothyroxine Sodium 112 MCG TAB PO SCH (05:25)
[2017-09-19 05:53] LABS: Anion Gap 18 mmol/L (10-20); BUN (Urea Nitrogen) 96 mg/dL (9.8-20.1); Calc. Creatinine Clearance 33 mL/min (70-130); Calcium 8.6 mg/dL (7.8-10.44); Carbon Dioxide 21 mmol/L (22-29); Chloride 107 mmol/L (98-107); Estimated GFR-MDRD 14; Glucose 107 mg/dL (70-105); Potassium 4.7 mmol/L (3.5-5.1); Sodium 141 mmol/L (136-145)
[2017-09-19] MEDS: glipiZIDE 5 MG TAB PO SCH ×2 (08:15→17:36)
[2017-09-19] MEDS: Cyclobenzaprine 10 MG TAB PO SCH ×3 (08:16→20:01)
[2017-09-19] MEDS: azaTHIOprine 50 MG TAB PO SCH ×2 (08:16→20:03)
[2017-09-19] MEDS: fentaNYL 50 mcg/hour Patch TD SCH (08:17)
[2017-09-19] MEDS: Docusate 100 MG CAP PO SCH ×4 (08:17→20:01)
[2017-09-19] MEDS: DULoxetine 30 MG CAP PO SCH (08:17)
[2017-09-19] MEDS: Fluticasone Propionate Nasal Spray 16 gm Bottle NASAL SCH (08:19)
[2017-09-19] MEDS: Proctozone-HC 2.5% Cream 30 GM TUBE TOP SCH (08:19)
[2017-09-19] MEDS: HYDROmorphone 2 MG TAB PO SCH ×2 (08:20→19:59)
[2017-09-19] MEDS: Levemir Flexpen 100 UNITS/ML PEN SC SCH ×2 (08:21→20:02)
[2017-09-19] MEDS: Nystatin 500,000 UNITS/5 ML UDCUP SSW SCH ×4 (08:24→20:00)
[2017-09-19] MEDS: Nystatin Powder 15 GM BOT TOP SCH ×2 (08:24→20:03)
[2017-09-19] MEDS: Nicotine 21 MG PATCH TD SCH (08:24)
[2017-09-19] MEDS: Nystatin/Triamcinolone Cream 15 GM TUBE TOP SCH ×2 (08:25→20:03)
[2017-09-19] MEDS: Oxybutynin ER 5 MG TAB PO SCH (08:25)
[2017-09-19] MEDS: Saccharomyces boulardii 250 MG CAP PO SCH (08:26)
[2017-09-19] MEDS: Polyethylene Glycol 3350 17 GM Packet PO SCH ×2 (08:26)
[2017-09-19] MEDS: Cefepime 2 GM VIAL IVPB SCH ×2 (08:33→14:55)
[2017-09-19] MEDS: Sodium Chloride 0.9% 1,000 ML IV SCH (10:09)
[2017-09-19] MEDS ORDERED: Vancomycin HCl 500 MG in Sodium Chloride 0.9% 100 ML IVPB SCH (12:00)
[2017-09-19] MEDS: Acetaminophen/Codeine 30-300mg Tablet PO PRN (12:14)
[2017-09-19] MEDS ORDERED: Acetaminophen 325 MG TAB PO PRN (12:18)
[2017-09-19] MEDS: ALPRAZolam 0.5 MG TAB PO SCH (19:59)
[2017-09-19] MEDS: Montelukast Sodium 10 mg Tablet PO SCH (20:01)
[2017-09-19] MEDS: Melatonin 3 MG TAB PO SCH (20:01)
[2017-09-19] MEDS: Pravastatin Sodium 20 MG TAB PO SCH (20:01)
[2017-09-19] MEDS: Ondansetron ODT 4 MG TAB PO PRN (23:58)
[2017-09-20] MEDS: Sodium Chloride 0.9% 1,000 ML IV SCH (04:03)
[2017-09-20] MEDS: Acetaminophen/Codeine 30-300mg Tablet PO PRN ×2 (04:05→16:46)
[2017-09-20] MEDS: Levothyroxine Sodium 112 MCG TAB PO SCH (05:09)
[2017-09-20 05:34] LABS: Anion Gap 17 mmol/L (10-20); BUN (Urea Nitrogen) 83 mg/dL (9.8-20.1); Calc. Creatinine Clearance 34 mL/min (70-130); Calcium 8.3 mg/dL (7.8-10.44); Carbon Dioxide 19 mmol/L (22-29); Chloride 108 mmol/L (98-107); Estimated GFR-MDRD 15; Glucose 142 mg/dL (70-105); Potassium 4.4 mmol/L (3.5-5.1); Sodium 140 mmol/L (136-145)
[2017-09-20] MEDS: glipiZIDE 5 MG TAB PO SCH ×2 (08:33→16:45)
[2017-09-20] MEDS: Docusate 100 MG CAP PO SCH ×4 (08:34→20:34)
[2017-09-20] MEDS: azaTHIOprine 50 MG TAB PO SCH ×2 (08:34→20:34)
[2017-09-20] MEDS: Cyclobenzaprine 10 MG TAB PO SCH ×3 (08:34→23:17)
[2017-09-20] MEDS: DULoxetine 30 MG CAP PO SCH (08:34)
[2017-09-20] MEDS: Polyethylene Glycol 3350 17 GM Packet PO SCH (08:34)
[2017-09-20] MEDS: Saccharomyces boulardii 250 MG CAP PO SCH (08:35)
[2017-09-20] MEDS: Nystatin 500,000 UNITS/5 ML UDCUP SSW SCH ×4 (08:35→20:35)
[2017-09-20] MEDS: Nicotine 21 MG PATCH TD SCH (08:35)
[2017-09-20] MEDS: Oxybutynin ER 5 MG TAB PO SCH (08:35)
[2017-09-20] MEDS: Enoxaparin Sodium 30 MG/0.3 ML SYRINGE SC SCH (08:35)
[2017-09-20] MEDS: Proctozone-HC 2.5% Cream 30 GM TUBE TOP SCH (08:38)
[2017-09-20] MEDS: Fluticasone Propionate Nasal Spray 16 gm Bottle NASAL SCH (08:38)
[2017-09-20] MEDS: HYDROmorphone 2 MG TAB PO SCH ×2 (08:38→20:35)
[2017-09-20] MEDS: Levemir Flexpen 100 UNITS/ML PEN SC SCH ×2 (08:40→20:38)
[2017-09-20] MEDS: Nystatin/Triamcinolone Cream 15 GM TUBE TOP SCH ×2 (08:41→20:47)
[2017-09-20] MEDS: Nystatin Powder 15 GM BOT TOP SCH ×2 (08:41→20:47)
[2017-09-20 09:26] VITALS: BMI 33.2
[2017-09-20] MEDS: Cefepime 2 GM VIAL IVPB SCH (11:51)
--- NOTE | 2017-09-20 16:03 | CT ---
CT BRAIN WITHOUT CONTRAST 09/20/17 HISTORY: New onset tremors in both hands and arms. FINDINGS: No evidence of acute infarct, hemorrhage or midline shift or abnormal extra-axial fluid collections a re seen. The ventricular size is normal and the basilar cisterns are patent. The bony calvarium is in tact. There is mucosal disease in the paranasal sinuses. IMPRESSION: No CT evidence of acute intracranial process. POS: [facility]
[2017-09-20] MEDS: ALPRAZolam 0.5 MG TAB PO SCH (20:33)
[2017-09-20] MEDS: Montelukast Sodium 10 mg Tablet PO SCH (20:34)
[2017-09-20] MEDS: Melatonin 3 MG TAB PO SCH (20:34)
[2017-09-20] MEDS: Pravastatin Sodium 20 MG TAB PO SCH (20:35)
[2017-09-20] MEDS ORDERED: Carvedilol 3.125 MG TAB PO SCH (21:00)
[2017-09-21] MEDS: Sodium Chloride 0.9% 1,000 ML IV SCH (00:55)
[2017-09-21] MEDS: Levothyroxine Sodium 112 MCG TAB PO SCH (05:01)
[2017-09-21] MEDS: Ondansetron ODT 4 MG TAB PO PRN (07:05)
[2017-09-21] MEDS: Proctozone-HC 2.5% Cream 30 GM TUBE TOP SCH (08:41)
[2017-09-21] MEDS: Fluticasone Propionate Nasal Spray 16 gm Bottle NASAL SCH (08:41)
[2017-09-21] MEDS: Nicotine 21 MG PATCH TD SCH (08:41)
[2017-09-21] MEDS: Polyethylene Glycol 3350 17 GM Packet PO SCH (08:42)
[2017-09-21] MEDS: Nystatin 500,000 UNITS/5 ML UDCUP SSW SCH ×4 (08:45→21:02)
[2017-09-21] MEDS: Cyclobenzaprine 10 MG TAB PO SCH ×3 (08:45→21:03)
[2017-09-21] MEDS: azaTHIOprine 50 MG TAB PO SCH ×2 (08:45→21:03)
[2017-09-21] MEDS: Carvedilol 3.125 MG TAB PO SCH ×2 (08:45→16:32)
[2017-09-21] MEDS: Oxybutynin ER 5 MG TAB PO SCH (08:45)
[2017-09-21] MEDS: Saccharomyces boulardii 250 MG CAP PO SCH (08:45)
[2017-09-21] MEDS: Docusate 100 MG CAP PO SCH ×4 (08:45→21:02)
[2017-09-21] MEDS: Enoxaparin Sodium 30 MG/0.3 ML SYRINGE SC SCH (08:46)
[2017-09-21] MEDS: DULoxetine 30 MG CAP PO SCH (08:46)
[2017-09-21] MEDS: HYDROmorphone 2 MG TAB PO SCH ×2 (08:46→21:04)
[2017-09-21] MEDS: Nystatin Powder 15 GM BOT TOP SCH ×2 (08:50→21:16)
[2017-09-21] MEDS: Nystatin/Triamcinolone Cream 15 GM TUBE TOP SCH ×2 (08:50→21:15)
[2017-09-21 11:27] LABS: Hemoglobin 10.3 g/dL (12.0-16.0); Mean Corpuscular HGB CONC 32.3 g/dL (32.0-36.0); Mean Corpuscular Hemoglobin 30.3 pg (27.0-31.0); Mean Corpuscular Volume 93.8 fL (78.0-98.0); Platelet Count 62 thou/uL (130-400); Red Blood Cell (RBC) Count 3.39 mill/uL (4.20-5.40); White Blood Cell (WBC) Count 9.4 thou/uL (4.8-10.8)
[2017-09-21 11:28] LABS: Eosinophils 2 % (0-10); Lymphocytes 22 % (21-51); MDiff Complete? YES; Manual Diff?? YES; Mean Platelet Volume 7.4 fL (7.4-10.4); Monocytes 5 % (0-10); Neutrophil 71 % (42-75)
[2017-09-21 11:29] LABS: Differential Comment PLT CLUMPS PRESENT
[2017-09-21 11:30] LABS: PLT Morphology Comment DRAW FROM PIC DIFFIC
[2017-09-21 11:34] LABS: Anion Gap 19 mmol/L (10-20); BUN (Urea Nitrogen) 75 mg/dL (9.8-20.1); Calc. Creatinine Clearance 35 mL/min (70-130); Calcium 8.1 mg/dL (7.8-10.44); Carbon Dioxide 19 mmol/L (22-29); Chloride 109 mmol/L (98-107); Estimated GFR-MDRD 16; Glucose 116 mg/dL (70-105); Potassium 5.1 mmol/L (3.5-5.1); Sodium 142 mmol/L (136-145)
[2017-09-21] MEDS: glipiZIDE 5 MG TAB PO SCH ×2 (12:04→16:32)
[2017-09-21] MEDS: Levemir Flexpen 100 UNITS/ML PEN SC SCH ×2 (12:04→21:05)
[2017-09-21 17:17] LABS: CRP (Inflammatory) 1.84 mg/dL (= or < 0.5)
[2017-09-21] MEDS: Melatonin 3 MG TAB PO SCH (21:02)
[2017-09-21] MEDS: Montelukast Sodium 10 mg Tablet PO SCH (21:03)
[2017-09-21] MEDS: Pravastatin Sodium 20 MG TAB PO SCH (21:03)
[2017-09-21] MEDS: ALPRAZolam 0.5 MG TAB PO SCH (21:03)
[2017-09-22] MEDS: Levothyroxine Sodium 112 MCG TAB PO SCH (05:21)
[2017-09-22] MEDS: Oxybutynin ER 5 MG TAB PO SCH (08:26)
[2017-09-22] MEDS: azaTHIOprine 50 MG TAB PO SCH ×2 (08:26→21:47)
[2017-09-22] MEDS: Saccharomyces boulardii 250 MG CAP PO SCH (08:27)
[2017-09-22] MEDS: Nicotine 21 MG PATCH TD SCH (08:27)
[2017-09-22] MEDS: DULoxetine 30 MG CAP PO SCH (08:27)
[2017-09-22] MEDS: Carvedilol 3.125 MG TAB PO SCH ×2 (08:27→16:43)
[2017-09-22] MEDS: glipiZIDE 5 MG TAB PO SCH ×2 (08:27→16:43)
[2017-09-22] MEDS: Docusate 100 MG CAP PO SCH ×4 (08:27→21:40)
[2017-09-22] MEDS: Nystatin 500,000 UNITS/5 ML UDCUP SSW SCH ×4 (08:27→21:40)
[2017-09-22] MEDS: Levemir Flexpen 100 UNITS/ML PEN SC SCH ×2 (08:28→21:45)
[2017-09-22] MEDS: Proctozone-HC 2.5% Cream 30 GM TUBE TOP SCH (08:28)
[2017-09-22] MEDS: Fluticasone Propionate Nasal Spray 16 gm Bottle NASAL SCH (08:28)
[2017-09-22] MEDS: Enoxaparin Sodium 30 MG/0.3 ML SYRINGE SC SCH (08:28)
[2017-09-22] MEDS: Cyclobenzaprine 10 MG TAB PO SCH ×3 (08:28→21:40)
[2017-09-22] MEDS: HYDROmorphone 2 MG TAB PO SCH ×2 (08:29→21:40)
[2017-09-22] MEDS: Nystatin Powder 15 GM BOT TOP SCH ×2 (08:29→21:45)
[2017-09-22] MEDS: Nystatin/Triamcinolone Cream 15 GM TUBE TOP SCH ×2 (08:29→21:43)
[2017-09-22] MEDS: Polyethylene Glycol 3350 17 GM Packet PO SCH (08:29)
[2017-09-22] MEDS: fentaNYL 50 mcg/hour Patch TD SCH (08:30)
[2017-09-22] MEDS: Ondansetron ODT 4 MG TAB PO PRN ×2 (08:35→13:50)
[2017-09-22] MEDS: Acetaminophen/Codeine 30-300mg Tablet PO PRN (13:50)
[2017-09-22] MEDS: Melatonin 3 MG TAB PO SCH (21:38)
[2017-09-22] MEDS: ALPRAZolam 0.5 MG TAB PO SCH (21:38)
[2017-09-22] MEDS: Montelukast Sodium 10 mg Tablet PO SCH (21:39)
[2017-09-22] MEDS: Pravastatin Sodium 20 MG TAB PO SCH (21:39)
[2017-09-23] MEDS: Levothyroxine Sodium 112 MCG TAB PO SCH (05:13)
[2017-09-23 05:50] LABS: Anion Gap 17 mmol/L (10-20); BUN (Urea Nitrogen) 67 mg/dL (9.8-20.1); Calc. Creatinine Clearance 32 mL/min (70-130); Calcium 8.3 mg/dL (7.8-10.44); Carbon Dioxide 21 mmol/L (22-29); Chloride 109 mmol/L (98-107); Estimated GFR-MDRD 14; Glucose 195 mg/dL (70-105); Potassium 4.6 mmol/L (3.5-5.1); Sodium 142 mmol/L (136-145)
[2017-09-23 07:32] VITALS: BP 162/73; TEMP 97.8
[2017-09-23] MEDS: Enoxaparin Sodium 30 MG/0.3 ML SYRINGE SC SCH (08:07)
[2017-09-23] MEDS: Saccharomyces boulardii 250 MG CAP PO SCH (08:08)
[2017-09-23] MEDS: HYDROmorphone 2 MG TAB PO SCH (08:08)
[2017-09-23] MEDS: Nystatin 500,000 UNITS/5 ML UDCUP SSW SCH ×2 (08:08→11:28)
[2017-09-23] MEDS: azaTHIOprine 50 MG TAB PO SCH (08:09)
[2017-09-23] MEDS: DULoxetine 30 MG CAP PO SCH (08:09)
[2017-09-23] MEDS: Docusate 100 MG CAP PO SCH ×2 (08:10→11:28)
[2017-09-23] MEDS: Oxybutynin ER 5 MG TAB PO SCH (08:10)
[2017-09-23] MEDS: Carvedilol 3.125 MG TAB PO SCH (08:10)
[2017-09-23] MEDS: Cyclobenzaprine 10 MG TAB PO SCH (08:10)
[2017-09-23] MEDS: glipiZIDE 5 MG TAB PO SCH (08:11)
[2017-09-23] MEDS: Proctozone-HC 2.5% Cream 30 GM TUBE TOP SCH (08:12)
[2017-09-23] MEDS: Fluticasone Propionate Nasal Spray 16 gm Bottle NASAL SCH (08:12)
[2017-09-23] MEDS: Levemir Flexpen 100 UNITS/ML PEN SC SCH (08:13)
[2017-09-23] MEDS ORDERED: Sodium Chloride 0.9% 1,000 ML BAG ONE (09:00)
[2017-09-23] MEDS: Acetaminophen/Codeine 30-300mg Tablet PO PRN (11:28)
[2017-09-23] MEDS: Nicotine 21 MG PATCH TD SCH (11:33)
[2017-09-23] MEDS: Nystatin/Triamcinolone Cream 15 GM TUBE TOP SCH (11:33)
[2017-09-23] MEDS: Nystatin Powder 15 GM BOT TOP SCH (11:33)
[2017-09-23] MEDS: Polyethylene Glycol 3350 17 GM Packet PO SCH (11:34)
--- NOTE | 2017-09-24 23:29 | DIS ---
DATE OF ADMISSION: 08/25/2017 DATE OF DISCHARGE: 09/23/2017 ATTENDING PHYSICIAN: Agueda Gomez M.D. SPECIALIST: 1. Dr. Glynn Velásquez, Infectious Disease. 2. Dr. Eulogio Poole, urologist. 3. Dr. Jeffery Mendez, bottler helper. 4. Dr. Eric Mendez, neurologist. 5. Dr. Mu Vila, Orthopedics. REASON FOR ADMISSION: To complete IV antibiotic in [facility]. FINAL DIAGNOSES: 1. Septic arthritis of the symphysis pubis, requiring long-term IV antibiotic. She completed cefepi me and vancomycin. She will continue oral ampicillin for a month. 2. Acute on chronic renal insufficiency, chronic kidney disease, stage 4. 3. Diabetes mellitus, type 2, insulin requiring, poorly controlled. 4. Chronic pain syndrome. 5. Hypertension. 6. Bilateral leg edema. 7. Neurogenic bladder requiring chronic indwelling Mcpherson catheter. 8. Multiple sclerosis leaving her bed bound secondary to lower extremity weakness. SECONDARY DIAGNOSES: 1. General anxiety. 2. Anxiety and depression. 3. Chronic depression. 4. Fibromyalgia. 5. Chronic migraine. 6. Hyperlipidemia. 7. Hypothyroidism. 8. . 9. History of falls. 10. Morbid obesity. DISPOSITION: [facility]. CONDITION ON DISCHARGE: Stable. HOME MEDICATIONS: 1. Ampicillin 500 mg p.o. t.i.d. 2. Xanax 0.5 mg at bedtime. 3. Activase as needed. 4. Tylenol Arthritis p.r.n. 5. Clonidine 0.1 mg p.o. q.6 hours p.r.n. for systolic blood pressure equal or greater than 180 and/ or diastolic blood pressure equal or greater 105. 6. Coreg 3.125 mg p.o. b.i.d. 7. Flexeril 10 mg p.o. t.i.d. 8. Bentyl 10 mg p.o. q.i.d. p.r.n. for bladder spasm. 9. Colace q.i.d. 10. Fentanyl patch 50 mcg transdermal, change every 3 days. 11. MiraLax 17 grams daily. 12. Glipizide 5 mg p.o. b.i.d. 13. Humalog per sliding scale. 14. Dilaudid 4 mg p.o. b.i.d. 15. Lantus 85 mg subcu b.i.d. 16. Floranex 1 tablet p.o. daily 17. Levothyroxine 112 mcg p.o. daily. 18. Melatonin 10 mg p.o. at bedtime p.r.n. 19. Ditropan-XL 10 mg p.o. daily. 20. Protonix 40 mg p.o. daily. DIET: 2200 kilocalorie ADA, low salt. ACTIVITIES: Ad-anali. Max assist for transfer, may need higher lift from transfer. The patient is to complete ampicillin 500 mg p.o. 3 times a day for a month. Repeat basic metabolic panel on Tuesday09/26/2017 and 09/29/2017 and notify M.D. as soon as results are available. Repeat CT scan of the pel vis with IV contrast when renal function returns to baseline . I will keep PICC line in place until creatinine down to 2.5 mg/dL. Continue PICC line. Change dressing every 7 days . PT/OT evaluate and treat. Change the Mcpherson catheter every 2 weeks, . Continue SSI coverage coverage with NovoLog per previous protocol in the [facility]. FOLLOWUP APPOINTMENTS: 1. Follow up with Dr. Velásquez in [address] scan of the pelvis with IV contrast results. [facility] staff to schedule/confirm the appointment. 2. Follow up with Dr. Mendez in [facility] on 09/30/2017. longterm staff to schedule/ confirm the appointment. To bring basic metabolic panel results of the patient during the visit. 3. Follow up with Dr. Mendez in 1-2 weeks for further evaluation of the hand tremors. 4. To notify Dr. Gomez for re-admission to the [facility] and confirmation of orders. 5. SCDs to be worn daily by the patient, remove at bedtime only. HISTORY OF PRESENT ILLNESS AND HOSPITAL COURSE: Ms. Yun was recently admitted to [facility] in [place] for sepsis of symphysis pubis that requires long-term IV antibiotic th erapy. She was treated with vancomycin and cefepime, in consultation with Infectious Disease special ist. Dr. Velásquez recommended 6-week IV antibiotic therapy. PICC line was placed on 08/18/2017, 45 cm long. During this hospitalization, the patient underwent CT-guided biopsy of the pubic symphysis on 08/24/2017 and diagnostic cystoscopy and vaginoscopy on 08/16/[address] Poole. The patient had made a Urology followup with Dr. Poole and was recommended to continue Mcpherson catheter in place to be changed every 2 weeks. Last Mcpherson catheter was changed on 09/21/2017. The patient was subsequ ently transferred to [facility] on 08/25/2017 to complete her IV antibiotic. She was als o referred to physical therapy and occupational therapy for physical deconditioning and general weakn ess. The patient remained bed bound and max assist for transfers. She was seen on her baseline fun tional status prior to discharge. During her rehab course, a routine weekly blood work and routine v ancomycin trough and random level were obtained. With pharmacy's assistance, her vancomycin was adju sted appropriately depending on the level. Her baseline creatinine level on 08/26/2017 was 1.02 with a GFR of 57, BUN of 25. Her white count remains within normal limits. Her hemoglobin stays at 10+ range along the course. There was a significant trending level of CRP and ESR over the course. Her renal function was noticeably worsening in a gradual course, reaching the highest creatinine level of 3.66 on 09/23/2017. Medications were readjusted according to the renal function. We discontinued L asix, losartan, ibuprofen. We reconsulted back Dr. Velásquez for the IV antibiotic therapy secondary to worsening renal function. Telephone consult was done with Dr. Velásquez who reviewed the patient's cultu re and recommended to discontinue IV antibiotic and start on oral. ID specialist recommended katia patel for alternative oral antibiotic. Of note, the patient reported significant PENICILLIN allergy. She reports bumps, itching, and rash with PENICILLIN. Dr. Velásquez was reconsulted back for any alterna tives. Dr. Velásquez recommended to start ampicillin as most of the patient that does have a remote hist ory of PENICILLIN allergy does well as long as the patient will be monitored closely in the hospital. The patient was started on ampicillin 500 mg p.o. q.i.d. on 09/23/2017. Over the past 48 hours, th e patient has made no reaction nor reported intolerance to the medication. The patient went to see Stacey Velásquez on 09/23/2017 for a followup and adjusted the ampicillin from 500 mg q.i.d. to t.i.d. He al so recommended to complete antibiotic for a month. ID also recommended a repeat CT scan of the pelvi s with contrast when the renal function is back to baseline. He recommended also to keep the PICC li ne in place until the creatinine level at least goes down to 2.5 mg/dL. The patient remained afebril e over the course. Her overall functional activity was at baseline. She was deemed clinically stabl e to go back to [facility] and to continue monitoring of the renal function in the [facility]. I had a lengthy discussion with the patient and family in the presence of her mother. We discussed di carmen planning at length. Vital signs prior to discharge: Temperature 97.8, pulse 71, respirations 16, blood pressure 162/73, weight 225 pounds, height 5 feet. LABORATORY DATA: Labs prior to discharge: 09/21/2017, WBC 9.4, hemoglobin 10.3, hematocrit 31.8, ES R 98. 09/23/2017, sodium 142, potassium 4.2, BUN 67, creatinine 3.36, glucose 195, calcium 8.3, CRP 1.84. Time spent on this discharge in examining the patient and coordinating care, 35 minutes.
== END 2017-09-23 11:49 | DRG 548 ==
LOC: MADMS 14:39
PROVIDERS: ADMIT Family Medicine; ATTEND Family Medicine
DX: M00.9 Pyogenic arthritis, unspecified (principal); R53.2 Functional quadriplegia; N18.4 Chronic kidney disease, stage 4 (severe); G35 Multiple sclerosis; G89.4 Chronic pain syndrome; M79.7 Fibromyalgia; N31.9 Neuromuscular dysfunction of bladder, unspecified; E66.01 Morbid (severe) obesity due to excess calories; Z74.01 Bed confinement status; Z79.4 Long term (current) use of insulin; K59.09 Other constipation; F41.9 Anxiety disorder, unspecified; F32.9 Major depressive disorder, single episode, unspecified; E03.9 Hypothyroidism, unspecified; G43.909 Migraine, unspecified, not intractable, without status migrainosus; E78.5 Hyperlipidemia, unspecified; K21.9 Gastro-esophageal reflux disease without esophagitis; F51.04 Psychophysiologic insomnia; Q63.1 Lobulated, fused and horseshoe kidney; F17.210 Nicotine dependence, cigarettes, uncomplicated; Z87.01 Personal history of pneumonia (recurrent); R26.9 Unspecified abnormalities of gait and mobility; Z91.81 History of falling; I12.9 Hypertensive chronic kidney disease with stage 1 through stage 4 chronic kidney disease, or unspecified chronic kidney disease; E11.22 Type 2 diabetes mellitus with diabetic chronic kidney disease; N28.9 Disorder of kidney and ureter, unspecified; R60.0 Localized edema; Z91.19 Patient's noncompliance with other medical treatment and regimen; D63.1 Anemia in chronic kidney disease; K12.1 Other forms of stomatitis; L30.9 Dermatitis, unspecified
CPT/HCPCS: 36415; 36416; 70450; 80048; 80202; 85025; 85652; 86140; 87086; A4216; G8987-GO-CL; G8988-GO-CI; J0692; J1642; J1650; J1815; J2997; J3370; J7050; J7500; Q0162

== ENCOUNTER 2017-10-14 12:22 | Outpatient (CLI) | payer MEDICARE ==
--- NOTE | 2017-10-14 13:37 | CT ---
CT PELVIS WITHOUT CONTRAST: HISTORY: Bone infection. COMPARISON: MRI pelvis 08/21/17. FINDINGS: A Mcpherson catheter is in place. There is widening of the pubic symphysis, similar to the comparison ex amination. There is some osteitis of the inferior pubic rami and pubic bodies. There appears to be healing osteomyelitis. No further widening. No other areas of bone destruction. The soft tissue fullness of the adductors and fluid collection is likely similar to slightly improved . There is absence of a normal sacrum which was seen on the prior examination and may be due to chronic pressure ulceration or old osteomyelitis. There is sclerosis of the iliac spines bilaterally that m ay be pressure related. IMPRESSION: 1. 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 No evidence of further progression of osteomyelitis. 2. Presacral soft tissue edema, likely reactive in nature from the recent inflammatory process. POS: [facility]
== END 2017-10-14 12:23 | disposition home or self-care (01) ==
LOC: MADRAD 12:22
PROVIDERS: ATTEND Family Medicine
DX: M86.9 Osteomyelitis, unspecified (principal); R60.0 Localized edema; L89.309 Pressure ulcer of unspecified buttock, unspecified stage
CPT/HCPCS: 72192